=== PATIENT | female | born 1940 | race Caucasian/White ===

== ENCOUNTER 2020-07-04 08:15 | Outpatient (REF) | payer OTHER, SELFPAY ==
[2020-07-04 11:45] LABS: HCG Quantitative < 2 mIU/mL
[2020-07-04 12:03] LABS: Anion Gap 12 (12-20); Blood Urea Nitrogen 17 mg/dL (9-16); Calcium 10.1 mg/dL (8.4-10.2); Carbon Dioxide 28 mmol/L (22-29); Chloride 106 mmol/L (96-108); Cholesterol 209 mg/dL; Estimated Glomerular Filt Rate 54; Glucose Random 93 mg/dL (60-115); HDL Cholesterol 64 mg/dL; LDL Cholesterol Calculated 124 mg/dl; Potassium 4.9 mmol/l (3.3-5.1); Sodium 141 mmol/L (135-145); Triglycerides 107 mg/dL
== END 2020-07-04 08:16 | disposition home or self-care (01) ==
LOC: HO.HMGCLDS 08:15
PROVIDERS: PCP Internal Medicine; Visit Provider Internal Medicine
DX: N28.9 Disorder of kidney and ureter, unspecified (principal); T78.40XA Allergy, unspecified, initial encounter; M81.0 Age-related osteoporosis without current pathological fracture; I10 Essential (primary) hypertension
CPT/HCPCS: 36415; 80048; 80061; 84702; 85018

== ENCOUNTER 2020-11-05 09:26 | Outpatient (REF) | payer OTHER, SELFPAY ==
[2020-11-05 11:49] LABS: Anion Gap 14 (12-20); Blood Urea Nitrogen 18 mg/dL (9-16); Calcium 10.4 mg/dL (8.4-10.2); Carbon Dioxide 26 mmol/L (22-29); Chloride 106 mmol/L (96-108); Estimated Glomerular Filt Rate 52; Glucose Random 96 mg/dL (60-115); Sodium 141 mmol/L (135-145)
== END 2020-11-05 09:27 | disposition home or self-care (01) ==
LOC: HO.HMGCLDS 09:26
PROVIDERS: PCP Internal Medicine; Visit Provider Internal Medicine
DX: M81.0 Age-related osteoporosis without current pathological fracture (principal); I10 Essential (primary) hypertension; N28.9 Disorder of kidney and ureter, unspecified
CPT/HCPCS: 36415; 80048

== ENCOUNTER 2020-12-10 09:49 | Outpatient (REF) | payer OTHER, SELFPAY ==
--- NOTE | ~2020-12-10 | MM_ITS ---
EXAMINATION: MM SCREENING DIGITAL BREAST TOMOSYNTHESIS, BILATERAL CLINICAL INFORMATION: Screening. Asymptomatic. The lifetime risk of breast cancer based on the Tyrer-Cuzick Model is 3%. COMPARISON: Mammography: 04/05/2019, 02/24/2018, 12/01/2016 TECHNIQUE: Digital breast tomosynthesis is performed in both the craniocaudal and mediolateral oblique views along with computer-aided detection (CAD). Synthesized 2D images are generated from the tomosynthesis. FINDINGS: There are scattered areas of fibroglandular density (ACR BI-RADS breast composition Category b). There are no significant masses, abnormal calcifications, or other abnormalities. Parenchymal pattern is similar to prior studies. No developing density. No significant changes. MM/MM tomosynthesis screening BI IMPRESSION: No mammographic evidence of malignancy. ASSESSMENT: BI-RADS 1: Negative RECOMMENDATION: Routine annual mammography screening. This patient's information was entered into a reminder system with a target due date for their next mammogram.
== END 2020-12-10 09:50 | disposition home or self-care (01) ==
LOC: HO.MAMMO 09:49
PROVIDERS: PCP Internal Medicine; Visit Provider Internal Medicine
DX: Z12.31 Encounter for screening mammogram for malignant neoplasm of breast (principal)
CPT/HCPCS: 77063; 77067

== ENCOUNTER 2020-12-17 10:44 | Outpatient (REF) | payer OTHER, SELFPAY ==
[2020-12-17 13:50] LABS: MANUAL DIFF FLAG NO
[2020-12-17 13:52] LABS: Basophils Percent Auto 0.4 % (0-2); Eosinophils Absolute Auto 0.1 X10*3/uL (0.0-0.4); Eosinophils Percent Auto 1.4 % (0-4); Hematocrit 41.4 % (37-47); Hemoglobin 13.4 g/dl (12.0-16.0); Imm Gran Abs Auto 0.02 X10*3/uL (0.00-0.03); Imm Gran Pct Auto 0.4 % (0.0-0.4); Lymphocytes Absolute Auto 1.4 X10*3/uL (1.2-4.9); Mean Corpuscular HGB Conc 32.4 g/dl (31.0-35.0); Mean Corpuscular Hemoglobin 29.8 pg (27.0-33.0); Mean Platelet Volume 9.4 fL (9.4-12.3); Monocytes Absolute Auto 0.6 X10*3/uL (0.1-1.2); Monocytes Percent Auto 10.3 % (2-11); Neutrophils Absolute Auto 3.6 X10*3/uL (2.0-8.3); Neutrophils Percent Auto 62.5 % (45-73); Platelet Count 352 X10*3/uL (160-400); Red Cell Distribution Width 12.6 % (11.0-16.0); White Blood Count 5.7 X10*3/uL (4.8-10.8)
[2020-12-17 14:20] LABS: Alanine Aminotransferase 18 U/L (0-31); Albumin Level 4.2 g/dL (3.5-5.0); Alkaline Phosphatase 78 U/L (39-117); Aspartate Amino Transferase 18 U/L (5-31); Bilirubin Direct < 0.2 mg/dL (0.0-0.5); Bilirubin Total 0.5 mg/dL (0.0-1.0); Total Protein 6.8 g/dL (6.5-8.0)
== END 2020-12-17 10:45 | disposition home or self-care (01) ==
LOC: HO.HMGCLDS 10:44
PROVIDERS: PCP Internal Medicine; Visit Provider Internal Medicine
DX: R10.11 Right upper quadrant pain (principal)
CPT/HCPCS: 36415; 80076; 85025

== ENCOUNTER 2020-12-18 08:50 | Outpatient (REF) | payer OTHER, SELFPAY ==
--- NOTE | ~2020-12-18 | US_ITS ---
EXAMINATION: US ABDOMEN COMPLETE CLINICAL INFORMATION: Right upper quadrant pain. COMPARISON: None TECHNIQUE: Real-time imaging of the abdominal viscera. FINDINGS: PANCREAS: The head and body the pancreas are normal. The tail is not well visualized due to bowel gas. ABDOMINAL AORTA: There is evidence of atherosclerotic disease. The proximal, mid, and distal segments are normal in caliber. INFERIOR VENA CAVA: Visualized portions are normal. LIVER: Normal. The liver is normal in size. The liver contour is normal. Parenchymal echogenicity is normal. No focal hepatic lesion. There is no intrahepatic biliary duct dilatation seen. GALLBLADDER: Normal. The gallbladder is physiologically distended without evidence of stones, sludge, polyps, wall thickening or pericholecystic fluid. COMMON BILE DUCT: Normal in caliber measuring 0.6 cm in diameter. RIGHT KIDNEY: Normal. No hydronephrosis. No renal calculi or focal parenchymal lesions. The kidney measures 9.6 cm in maximum dimension. LEFT KIDNEY: There is mild left hydronephrosis versus extrarenal pelvis.. No renal calculi or focal parenchymal lesions. The kidney measures 9.4 cm in maximum dimension. SPLEEN: Normal. The spleen measures 8.2 cm in maximum dimension. FREE FLUID: None. US/US abdomen complete IMPRESSION: Mild left hydronephrosis versus extrarenal pelvis. Limited visualization of the pancreas. Atherosclerotic disease of the aorta. No gallstone seen.
== END 2020-12-18 08:51 | disposition home or self-care (01) ==
LOC: HO.US 08:50
PROVIDERS: PCP Internal Medicine; Visit Provider Internal Medicine
DX: R10.11 Right upper quadrant pain (principal)
CPT/HCPCS: 76700

== ENCOUNTER → 2021-01-07 11:02 | Outpatient (BNVA) | payer OTHER, SELFPAY | PROVIDERS: PCP Internal Medicine; Visit Provider Surgery Vascular Surgery ==

== ENCOUNTER → 2021-02-06 11:57 | Outpatient (BNVA) | payer OTHER, SELFPAY | PROVIDERS: PCP Internal Medicine; Referring Provider Internal Medicine; Visit Provider Physician Assistant ==

== ENCOUNTER 2021-02-20 09:10 | Outpatient (REF) | payer OTHER, SELFPAY ==
--- NOTE | ~2021-02-20 | FL_ITS ---
EXAMINATION: FL BARIUM SWALLOW CLINICAL INFORMATION: Dysphagia. COMPARISON: None TECHNIQUE: Barium swallow examination is performed using fluoroscopic evaluation in addition to multiple fluoroscopic spot views. The patient is imaged both upright and prone and using both thick and thin sulfate along with effervescent granules. Fluoroscopy time: 2.8 minutes DAP: 26.532 Gycm2 Images: 84 FINDINGS: Following oral administration of thick barium and barium-coated turkey there is normal propagation of bolus from the oral cavity through the pharynx, esophagus into stomach without any evidence of obstruction, narrowing or stricture. On placing patient supine and prone lying there is a small hiatal hernia with moderate gastroesophageal reflux into the upper esophagus. The mucosal pattern and peristalsis of esophagus is normal. FL/FL barium swallow IMPRESSION: Moderate size hiatal hernia with moderate gastroesophageal reflux into the upper esophagus.
== END 2021-02-20 09:11 | disposition home or self-care (01) ==
LOC: HO.XRAY 09:10
PROVIDERS: Visit Provider Physician Assistant
DX: R13.10 Dysphagia, unspecified (principal)
CPT/HCPCS: 74220

== ENCOUNTER 2021-03-25 07:46 | Outpatient (REF) | payer OTHER, SELFPAY | END 2021-03-25 07:47 | disposition home or self-care (01) | LOC: HO.LNP 07:46 | PROVIDERS: PCP Internal Medicine; Visit Provider Physician Assistant | DX: Z13.89 Encounter for screening for other disorder (principal) ==

== ENCOUNTER 2021-03-26 10:05 | Outpatient (REF) | payer OTHER, SELFPAY | END 2021-03-26 10:06 | disposition home or self-care (01) | LOC: HO.LNP 10:05 | PROVIDERS: Visit Provider Physician Assistant | DX: A04.8 Other specified bacterial intestinal infections (principal) | CPT/HCPCS: 87338 ==

== ENCOUNTER → 2021-04-29 09:12 | Outpatient (BNVA) | payer OTHER, SELFPAY | PROVIDERS: PCP Internal Medicine; Referring Provider Internal Medicine; Visit Provider Physician Assistant ==

== ENCOUNTER 2021-09-09 09:58 | Outpatient (REF) | payer OTHER, SELFPAY ==
[2021-09-09 12:28] LABS: Alanine Aminotransferase 19 U/L (0-31); Albumin Level 3.9 g/dL (3.5-5.0); Alkaline Phosphatase 73 U/L (39-117); Anion Gap 9 (12-20); Aspartate Amino Transferase 21 U/L (5-31); Bilirubin Total 0.7 mg/dL (0.0-1.0); Blood Urea Nitrogen 13 mg/dL (9-16); Calcium 10.1 mg/dL (8.4-10.2); Carbon Dioxide 28 mmol/L (22-29); Chloride 105 mmol/L (96-108); Estimated Glomerular Filt Rate 53; Glucose Random 125 mg/dL (60-115); Potassium 4.4 mmol/L (3.3-5.1); Sodium 138 mmol/L (135-145); Total Protein 6.7 g/dL (6.5-8.0)
== END 2021-09-09 09:59 | disposition home or self-care (01) ==
LOC: HO.HMGCLDS 09:58
PROVIDERS: PCP Internal Medicine; Visit Provider Internal Medicine
DX: I10 Essential (primary) hypertension (principal)
CPT/HCPCS: 36415; 80053

== ENCOUNTER 2021-12-11 10:17 | Outpatient (REF) | payer OTHER, SELFPAY ==
--- NOTE | ~2021-12-11 | MM_ITS ---
EXAMINATION: MM SCREENING DIGITAL BREAST TOMOSYNTHESIS, BILATERAL CLINICAL INFORMATION: Screening. Asymptomatic. The lifetime risk of breast cancer based on the Tyrer-Cuzick Model is 2.4%. COMPARISON: Mammography: December 10, 2020 and studies dating back to April 03, 2014 TECHNIQUE: Digital breast tomosynthesis is performed in both the craniocaudal and mediolateral oblique views along with computer-aided detection (CAD). Synthesized 2D images are generated from the tomosynthesis. FINDINGS: There are scattered areas of fibroglandular density (ACR BI-RADS breast composition Category b). There are no significant masses, abnormal calcifications, or other abnormalities. MM/MM tomosynthesis screening BI IMPRESSION: There are no significant changes from prior study. ASSESSMENT: BI-RADS 1: Negative RECOMMENDATION: Routine annual mammography screening. This patient's information was entered into a reminder system with a target due date for their next mammogram.
== END 2021-12-11 10:18 | disposition home or self-care (01) ==
LOC: HO.MAMMO 10:17
PROVIDERS: Visit Provider Internal Medicine
DX: Z12.31 Encounter for screening mammogram for malignant neoplasm of breast (principal)
CPT/HCPCS: 77063; 77067

== ENCOUNTER 2022-02-03 13:18 | Outpatient (REF) | payer OTHER, SELFPAY ==
[2022-02-03 17:08] LABS: Alanine Aminotransferase 18 U/L (0-31); Albumin Level 4.2 g/dL (3.5-5.0); Alkaline Phosphatase 72 U/L (39-117); Anion Gap 12 (12-20); Aspartate Amino Transferase 23 U/L (5-31); Bilirubin Total 0.4 mg/dL (0.0-1.0); Blood Urea Nitrogen 13 mg/dL (9-16); Calcium 10.3 mg/dL (8.4-10.2); Carbon Dioxide 26 mmol/L (22-29); Chloride 106 mmol/L (96-108); Estimated Glomerular Filt Rate 54; Glucose Random 93 mg/dL (60-115); Potassium 4.5 mmol/L (3.3-5.1); Sodium 139 mmol/L (135-145); Total Protein 7.1 g/dL (6.5-8.0)
== END 2022-02-03 13:19 | disposition home or self-care (01) ==
LOC: HO.HMGCLDS 13:18
PROVIDERS: PCP Internal Medicine; Visit Provider Internal Medicine
DX: I10 Essential (primary) hypertension (principal)
CPT/HCPCS: 36415; 80053

== ENCOUNTER 2022-08-12 10:29 | Outpatient (REF) | payer OTHER, SELFPAY ==
[2022-08-12 13:55] LABS: MANUAL DIFF FLAG NO
[2022-08-12 14:05] LABS: Basophils Percent Auto 0.6 % (0-2); Eosinophils Absolute Auto 0.1 X10*3/uL (0.0-0.4); Eosinophils Percent Auto 2.7 % (0-4); Hematocrit 42.5 % (37.0-47.0); Hemoglobin 13.7 g/dl (12.0-16.0); Imm Gran Abs Auto 0.02 X10*3/uL (0.00-0.03); Imm Gran Pct Auto 0.4 % (0.0-0.4); Lymphocytes Absolute Auto 1.4 X10*3/uL (1.2-4.9); Lymphocytes Percent Auto 29.4 % (20-40); Mean Corpuscular HGB Conc 32.2 g/dl (31.0-35.0); Mean Corpuscular Hemoglobin 29.8 pg (27.0-33.0); Mean Corpuscular Volume 92.6 fL (80.0-98.0); Mean Platelet Volume 10.1 fL (9.4-12.3); Monocytes Absolute Auto 0.5 X10*3/uL (0.1-1.2); Monocytes Percent Auto 10.7 % (2-11); Neutrophils Absolute Auto 2.7 x10*3/uL (2.0-8.3); Neutrophils Percent Auto 56.2 % (45-73); Platelet Count 298 X10*3/uL (160-400); Red Blood Count 4.59 X10*6/uL (4.20-5.50); Red Cell Distribution Width 12.1 % (11.0-16.0); White Blood Count 4.8 X10*3/uL (4.8-10.8)
[2022-08-12 14:49] LABS: Alanine Aminotransferase 26 U/L (0-31); Albumin Level 4.2 g/dL (3.5-5.0); Alkaline Phosphatase 77 U/L (39-117); Anion Gap 11 (12-20); Aspartate Amino Transferase 28 U/L (5-31); Bilirubin Total 0.5 mg/dL (0.0-1.0); Blood Urea Nitrogen 17 mg/dL (9-16); Calcium 10.8 mg/dL (8.4-10.2); Carbon Dioxide 27 mmol/L (22-29); Chloride 106 mmol/L (96-108); Estimated Glomerular Filt Rate > 60; Glucose Random 99 mg/dL (60-115); Potassium 4.4 mmol/L (3.3-5.1); Sodium 140 mmol/L (135-145); Total Protein 7.3 g/dL (6.5-8.0)
[2022-08-12 14:51] LABS: TSH reflex Free T4 2.83 uIU/mL (0.32-4.0)
[2022-08-14 00:58] LABS: LDL Cholesterol Direct 120 mg/dL (<100)
== END 2022-08-12 10:30 | disposition home or self-care (01) ==
LOC: HO.HMGCLDS 10:29
PROVIDERS: PCP Internal Medicine; Visit Provider Internal Medicine
DX: M81.0 Age-related osteoporosis without current pathological fracture (principal); N28.9 Disorder of kidney and ureter, unspecified; R10.13 Epigastric pain; I10 Essential (primary) hypertension
CPT/HCPCS: 36415; 80053; 83721; 84443; 85025

== ENCOUNTER 2023-01-12 09:22 | Outpatient (REF) | payer OTHER, SELFPAY ==
--- NOTE | ~2023-01-12 | MM_ITS ---
EXAMINATION: MM SCREENING DIGITAL BREAST TOMOSYNTHESIS, BILATERAL CLINICAL INFORMATION: Screening. Asymptomatic. The lifetime risk of breast cancer based on the Tyrer-Cuzick Model is 2%. COMPARISON: Mammography: 12/11/2021, 12/10/2020, 04/05/2019 TECHNIQUE: Digital breast tomosynthesis is performed in both the craniocaudal and mediolateral oblique views along with computer-aided detection (CAD). Synthesized 2D images are generated from the tomosynthesis. FINDINGS: There are scattered areas of fibroglandular density (ACR BI-RADS breast composition Category b). There are no significant masses, abnormal calcifications, or other abnormalities. Parenchymal pattern is similar to prior studies. There is no developing density or architectural abnormality. The axilla and skin contours are unremarkable. No significant changes. MM/MM tomosynthesis screening BI IMPRESSION: No mammographic evidence of malignancy. ASSESSMENT: BI-RADS 1: Negative RECOMMENDATION: Routine annual mammography screening. This patient's information was entered into a reminder system with a target due date for their next mammogram.
== END 2023-01-12 09:23 | disposition home or self-care (01) ==
LOC: HO.MAMMO 09:22
PROVIDERS: Visit Provider Internal Medicine
DX: Z12.31 Encounter for screening mammogram for malignant neoplasm of breast (principal)
CPT/HCPCS: 77063; 77067

== ENCOUNTER 2023-02-11 09:32 | Outpatient (REF) | payer OTHER, SELFPAY ==
[2023-02-11 12:50] LABS: Alanine Aminotransferase 14 U/L (0-31); Alkaline Phosphatase 73 U/L (39-117); Anion Gap 14 (12-20); Aspartate Amino Transferase 21 U/L (5-31); Bilirubin Total 0.6 mg/dL (0.0-1.0); Blood Urea Nitrogen 13 mg/dL (9-16); Calcium 11.1 mg/dL (8.4-10.2); Carbon Dioxide 25 mmol/L (22-29); Chloride 107 mmol/L (96-108); Estimated Glomerular Filt Rate 55; Glucose Random 114 mg/dL (60-115); Potassium 4.4 mmol/L (3.3-5.1); Sodium 142 mmol/L (135-145); Total Protein 6.9 g/dL (6.5-8.0)
[2023-02-13 18:38] LABS: LDL Cholesterol Direct 122 mg/dL (<100)
== END 2023-02-11 09:33 | disposition home or self-care (01) ==
LOC: HO.HMGCLDS 09:32
PROVIDERS: PCP Internal Medicine; Visit Provider Internal Medicine
DX: I10 Essential (primary) hypertension (principal); N28.9 Disorder of kidney and ureter, unspecified
CPT/HCPCS: 36415; 80053; 83721

== ENCOUNTER 2023-03-17 08:45 | Outpatient (AMB) | payer OTHER, SELFPAY ==
[2023-03-17 08:47] VITALS: BP 152/86; PULSE 92; O2SAT 97; BMI 25.0
--- NOTE | 2023-03-17 08:47 | MHC.PC.OV ---
Vital Signs 03/17/23 08:47 Height 5 ft 4 in Weight 145 lb 8 oz BMI 25.0 BP 152/86 H Blood Pressure Location Lt brachial Position Sitting Pulse 92 Pulse Source Pulse Oximeter Pulse Oximetry (%) 97 Oxygen Delivery Method Room Air Intake Visit Reasons: 6m follow up htn Allergies peanut butter / red wine Allergy (Unknown, Uncoded 04/29/22 12:21) unknown atnolol Adverse Reaction (Mild, Uncoded 08/12/22 10:34) tired Medication List - Last Reconciled 03/17/23 by Nicko Macias MD lisinopril 40 mg PO DAILY 90 days on-nlf-neeem acid-lutein 400-250 mcg (Centrum Silver) 1 tab PO DAILY Tobacco use date assessed: 03/17/23 Fall risk assessment: No Falls in past year Last assessed Fall Risk: 03/17/23 Dental Screening Dental Screen Date: 03/17/23 Did you have a dental visit in the last 12 months?: Yes Did you have a dental problem in the last 6 months where you did not have access to dental care?: No Was dental information given to patient?: No HPI 6m follow up htn HPI Details Patient is 82-year-old female came in today for her regular follow-up Blood pressure is elevated today at 152/86, patient is taking lisinopril 40 mg Patient says that her check-in process was stressful today and that is why her blood pressure is elevated she does not want to add another medication She will return on Wednesday for nursing visit to check blood pressure. Labs done recently reviewed with the patient She continued to have elevated calcium, I have ordered parathyroid hormone test Her LDL is 122 Kidney functions are stable Acid reflux is stable. Patient continued to be anxious however not taking any medication [facility] Medical History Age related osteoporosis Allergies Hypertension, essential Nephropathy Surgical History History of hysterectomy Family History Father Parkinson disease Unknown family medical history Mother Dementia Sister Myeloma Social History Household Members Other:: Alone- single, no child Housing: Apartment Alcohol intake: current Alcohol intake frequency: holidays/special occasions only Patient Tobacco Use Status: Never used Tobacco e-Cigarette/Vaping Use: Never Used Current occupational status: retired Cognitive needs: Yes Hearing needs: No Vision needs: Yes Questionnaire Thrive Questionnaire Date Thrive assessed: 03/07/21 AUDIT C Alcohol Use Questionnaire (AUDIT-C) 1. How often do you have a drink containing alcohol?: Never 3. How often do you have six or more drinks on one occasion?: Never Total Score: 0 Score Reviewed/Action Taken: Yes Review of Systems Const Denies chills and Denies fever(s) ENT Denies epistaxis and Denies nasal discharge Card Denies chest pain Resp Denies chest congestion, Denies cough and Denies hemoptysis GI Denies diarrhea and Denies nausea Skin/Breast Denies rash Neuro Reports no additional complaints Psych Reports no additional complaints Endo Reports no additional complaints Physical exam (Primary Care) Vital Signs: Last Vital Signs Pulse 92 03/17/23 08:47 BP 152/86 H 03/17/23 08:47 Pulse Ox 97 03/17/23 08:47 Oxygen Delivery Method Room Air 03/17/23 08:47 BMI result Body Mass Index 25.0 Tobacco/Smoking Status: Tobacco use Status Tobacco use date assessed 03/17/23 03/17/23 08:54 Patient Tobacco Use Status Never used Tobacco 03/17/23 08:54 e-Cigarette/Vaping Use Never Used 03/17/23 08:54 Thrive Assessment: Date of Thrive Assessment Date Thrive assessed 03/07/21 03/17/23 08:54 Const General: cooperative, comfortable and no acute distress Orientation/consciousness: patient oriented x3 HENAR Head: Yes normocephalic Eyes General: appearance normal, both eyes and all related structures Neck Neck: Yes supple Resp Effort & Inspection: normal respiratory effort, no cough and no stridor Cardio Rhythm: regular rhythm Heart sounds: S1 normal heart sound present and S2 normal heart sound present Skin General skin exam: turgor normal Neuro General: patient oriented x3, tone normal and moves all extremities Extrem Right lower extremity: no edema Left lower extremity: no edema Assessment and Plan Assessment & Plan (1) Serum calcium elevated: Code(s): E83.52 - Hypercalcemia (2) Nephropathy: Code(s): N28.9 - Disorder of kidney and ureter, unspecified (3) Anxiety, generalized: Code(s): F41.1 - Generalized anxiety disorder (4) Hypertension, essential: Code(s): I10 - Essential (primary) hypertension (5) Age related osteoporosis: Code(s): M81.0 - Age-related osteoporosis without current pathological fracture (6) Acid reflux: Code(s): K21.9 - Gastro-esophageal reflux disease without esophagitis Plan Patient is 82-year-old female came in today for her regular follow-up Blood pressure is elevated today at 152/86, patient is taking lisinopril 40 mg Patient says that her check-in process was stressful today and that is why her blood pressure is elevated she does not want to add another medication She will return on Wednesday for nursing visit to check blood pressure. Labs done recently reviewed with the patient She continued to have elevated calcium, I have ordered parathyroid hormone test Her LDL is 122 Kidney functions are stable Acid reflux is stable. Patient continued to be anxious however not taking any medication Orders: Orders Parathyroid Hormone Related Pr Today E83.52 - Hypercalcemia Vitamin D 25-OH (D2 and D3) Today E83.52 - Hypercalcemia Coding Level of Care Code Est Pt Level 3 (06569) Diagnoses Serum calcium elevated E83.52 Nephropathy N28.9 Anxiety, generalized F41.1 Hypertension, essential I10 Age related osteoporosis M81.0 Acid reflux K21.9
== END 2023-03-17 09:07 | disposition home or self-care (01) ==
PROVIDERS: Visit Provider Internal Medicine
DX: I10 Essential (primary) hypertension (principal); E83.52 Hypercalcemia; K21.9 Gastro-esophageal reflux disease without esophagitis; N28.9 Disorder of kidney and ureter, unspecified; F41.1 Generalized anxiety disorder; M81.0 Age-related osteoporosis without current pathological fracture
CPT/HCPCS: 99213

== ENCOUNTER 2023-03-17 09:10 | Outpatient (REF) | payer OTHER, SELFPAY ==
[2023-03-21 15:33] LABS: Vitamin D 25-OH, D2 <4 ng/mL; Vitamin D 25-OH, D3 45 ng/mL; Vitamin D 25-OH, Total 45 ng/mL (30-100)
[2023-03-24 00:04] LABS: Parathyroid Hormone Related Pr 14 pg/mL (11-20)
== END 2023-03-17 09:11 | disposition home or self-care (01) ==
LOC: HO.HMGCLDS 09:10
PROVIDERS: PCP Internal Medicine; Visit Provider Internal Medicine
DX: E83.52 Hypercalcemia (principal)
CPT/HCPCS: 36415; 82306; 83519

== ENCOUNTER 2023-06-16 10:01 | Outpatient (AMB) | payer OTHER, SELFPAY ==
[2023-06-16 10:04] VITALS: BP 140/80; PULSE 80; O2SAT 98; BMI 24.5
--- NOTE | 2023-06-16 10:04 | A.OFFPC_ITS ---
Vital Signs 06/16/23 10:04 Height 5 ft 4 in Weight 143 lb BMI 24.5 BP 140/80 H Blood Pressure Location Lt brachial Position Sitting Pulse 80 Pulse Source Pulse Oximeter Pulse Oximetry (%) 98 Oxygen Delivery Method Room Air Intake Visit Reasons: 3m follow up htn Allergies peanut butter / red wine Allergy (Unknown, Uncoded 06/16/23 10:10) unknown atnolol Adverse Reaction (Mild, Uncoded 06/16/23 10:10) tired Medication List - Last Reconciled 06/16/23 by Nicko Macias MD lisinopril 40 mg PO DAILY 90 days bu-xaz-frwvs acid-lutein 400-250 mcg (Centrum Silver) 1 tab PO DAILY Tobacco use date assessed: 06/16/23 Last assessed Fall Risk: 06/16/23 Dental Screening Dental Screen Date: 06/16/23 Did you have a dental visit in the last 12 months?: Yes Did you have a dental problem in the last 6 months where you did not have access to dental care?: Yes Was dental information given to patient?: Patient has dentist HPI 3m follow up htn HPI Details Patient is 82-year-old female came in today for her regular follow-up Blood pressure is running around 130 systolic at home, it is usually elevated when she comes to the office Patient is on lisinopril 40 mg and is doing well. Patient have constantly elevated calcium with normal parathyroid hormone level She also have osteoporosis, and is trying to do weight-bearing exercises. And eat calcium rich foods. She does have nephropathy her GFR was 55 in January We will be repeating labs again today Acid reflux is stable. Patient continued to be anxious however not taking any medication She wears hearing aid and having difficulty hearing from right ear On examination , it is impacted with cerumen She tells me that she has appointment with ENT end of this month. She will return in September for follow-up [facility] Medical History Nephropathy Allergies Age related osteoporosis Hypertension, essential Surgical History History of hysterectomy Family History Father Parkinson disease Unknown family medical history Mother Dementia Sister Myeloma Social History Household Members Other:: Alone- single, no child Housing: Apartment Alcohol intake: current Alcohol intake frequency: holidays/special occasions only Patient Tobacco Use Status: Never used Tobacco e-Cigarette/Vaping Use: Never Used Current occupational status: retired Cognitive needs: Yes Hearing needs: Yes Vision needs: Yes Questionnaire PHQ-9 Over the last 2 weeks, how often have you been bothered by any of the following problems? 1. Little interest or pleasure in doing things: not at all 2. Feeling down, depressed, or hopeless: not at all 3. Trouble falling or staying asleep, or sleeping too much: not at all 4. Feeling tired or having little energy: not at all 5. Poor appetite or overeating: not at all 6. Feeling bad about yourself - or that you are a failure or have let yourself or your family down: not at all 7. Trouble concentrating on things, such as reading the newspaper or watching television: not at all 8. Moving or speaking so slowly that other people could have noticed. Or the opposite - being so fidgety or restless that you have been moving around a lot more than usual: not at all 9. Thoughts that you would be better off or of hurting yourself in some way: not at all Total score: 0 Depression Screening Interpretation: Negative Depression Screening Done: Yes 83269 - PHQ-9 Billing: Yes Source: Developed by Drs. Phan Munroe, Avis Hitchcock, Alexi Mina and colleagues, with an educational serjio from [employer]. Thrive Questionnaire Date Thrive assessed: 06/16/23 I am a: Patient What is your living situation today?: I have a steady place to live Within the past 12 months, did the food you bought not last and you didn't have the money to get more?: Never true Within the past 12 months, did you worry whether your food would run out before you got money to buy more?: Never true Do you have trouble paying for medicines?: No Do you have trouble getting transportation to medical appointments?: No Do you have trouble paying your heating and electricity bill?: No Do you have trouble taking care of your child, family member or friend?: No Do you have trouble with day-to-day activities such as bathing, preparing meals, shopping, managing finances, etc.?: No Are you currently unemployed and looking for a job?: No Are you interested in more education?: No Please select the resources that you would like help with: None Currently or been in a relationship where the following occur: no concerns reported AUDIT C Alcohol Use Questionnaire (AUDIT-C) 1. How often do you have a drink containing alcohol?: Never Total Score: 0 ADRIAN-7 AMB Questionnaire ADRIAN-7 Date ADRIAN - 7 assessed: 06/16/23 Feeling nervous, anxious, or on edge: 0 = Not at all Not being able to stop or control worryin = Not at all Worrying too much about different things: 0 = Not at all Trouble relaxin = Not at all Being so restless that it is hard to sit still: 0 = Not at all Becoming easily annoyed or irritable: 0 = Not at all Feeling afraid as if something awful might happen: 0 = Not at all Total ADRIAN-7 score (0-4 normal; 5-9 mild; 10-14 moderate; 15-21 severe): 0 Source: Developed by Drs. Phan Munroe, Avis Hitchcock, Alexi Mina and colleagues, with an educational serjio from [employer]. ADRIAN-7 Assessment Billing ADRIAN-7 Assessment Tool: ADRIAN-7 Assessment 73086 Review of Systems Const Denies chills and Denies fever(s) ENT Denies epistaxis and Denies nasal discharge Card Denies chest pain Resp Denies chest congestion, Denies cough and Denies hemoptysis GI Denies diarrhea and Denies nausea Skin/Breast Denies rash Neuro Reports no additional complaints Psych Reports no additional complaints Endo Reports no additional complaints Physical exam (Primary Care) Vital Signs: Last Vital Signs Pulse 80 06/16/23 10:04 BP 140/80 H 06/16/23 10:04 Pulse Ox 98 06/16/23 10:04 Oxygen Delivery Method Room Air 06/16/23 10:04 BMI result Body Mass Index 24.5 Tobacco/Smoking Status: Tobacco use Status Tobacco use date assessed 06/16/23 06/16/23 10:13 Patient Tobacco Use Status Never used Tobacco 06/16/23 10:05 e-Cigarette/Vaping Use Never Used 06/16/23 10:05 PHQ-9: PHQ-9 Score PHQ-9: Total score 0 06/16/23 10:13 Depression Screening Interpretation: Negative Thrive Assessment: Date of Thrive Assessment Date Thrive assessed 06/16/23 06/16/23 10:13 Currently or been in a relationship where the following occur: no concerns reported Const General: cooperative, comfortable and no acute distress Orientation/consciousness: patient oriented x3 HENMT Head: Yes normocephalic Eyes General: appearance normal, both eyes and all related structures Neck Neck: Yes supple Resp Effort & Inspection: normal respiratory effort, no cough and no stridor Cardio Rhythm: regular rhythm Heart sounds: S1 normal heart sound present and S2 normal heart sound present Skin General skin exam: turgor normal Neuro General: patient oriented x3, tone normal and moves all extremities Extrem Right lower extremity: no edema Left lower extremity: no edema Assessment and Plan Assessment & Plan (1) Hypertension, essential: Code(s): I10 - Essential (primary) hypertension (2) Age related osteoporosis: Code(s): M81.0 - Age-related osteoporosis without current pathological fracture Qualifiers: Presence of current pathological fracture: without current pathological fracture Qualified Code(s): M81.0 - Age-related osteoporosis without current pathological fracture (3) Allergies: Code(s): T78.40XA - Allergy, unspecified, initial encounter (4) Nephropathy: Code(s): N28.9 - Disorder of kidney and ureter, unspecified (5) Anxiety, generalized: Code(s): F41.1 - Generalized anxiety disorder (6) Serum calcium elevated: Code(s): E83.52 - Hypercalcemia Plan Patient is 82-year-old female came in today for her regular follow-up Blood pressure is running around 130 systolic at home, it is usually elevated when she comes to the office Patient is on lisinopril 40 mg and is doing well. Patient have constantly elevated calcium with normal parathyroid hormone level She also have osteoporosis, and is trying to do weight-bearing exercises. And eat calcium rich foods. She does have nephropathy her GFR was 55 in January We will be repeating labs again today Acid reflux is stable. Patient continued to be anxious however not taking any medication She wears hearing aid and having difficulty hearing from right ear On examination , it is impacted with cerumen She tells me that she has appointment with ENT end of this month. She will return in September for follow-up Orders: Orders Comprehensive Met. Panel Today F41.1 - Generalized anxiety disorder, I10 - Essential (primary) hypertension, M81.0 - Age-related osteoporosis without current pathological fracture, N28.9 - Disorder of kidney and ureter, unspecified, T78.40XA - Allergy, unspecified, initial encounter Complete Blood Count Auto Diff Today F41.1 - Generalized anxiety disorder, I10 - Essential (primary) hypertension, M81.0 - Age-related osteoporosis without current pathological fracture, N28.9 - Disorder of kidney and ureter, unspecified, T78.40XA - Allergy, unspecified, initial encounter LDL Cholesterol Direct Today F41.1 - Generalized anxiety disorder, I10 - Essential (primary) hypertension, M81.0 - Age-related osteoporosis without current pathological fracture, N28.9 - Disorder of kidney and ureter, unspecified, T78.40XA - Allergy, unspecified, initial encounter Coding Level of Care Code Est Pt Level 4 (68894) Diagnoses Hypertension, essential I10 Age-related osteoporosis without current pathological fracture M81.0 Presence of current pathological fracture: without current pathological fracture Allergies T78.40XA Nephropathy N28.9 Anxiety, generalized F41.1 Serum calcium elevated E83.52 Additional Codes ADRIAN-7 Assessment Billing - ADRIAN-7 Assessment Tool: ADRIAN-7 Assessment 71504 ([id number])
== END 2023-06-16 10:31 | disposition home or self-care (01) ==
PROVIDERS: PCP Internal Medicine; Visit Provider Internal Medicine
DX: I10 Essential (primary) hypertension (principal); M81.0 Age-related osteoporosis without current pathological fracture; T78.40XA Allergy, unspecified, initial encounter; N28.9 Disorder of kidney and ureter, unspecified; F41.1 Generalized anxiety disorder; E83.52 Hypercalcemia
CPT/HCPCS: 99214

== ENCOUNTER 2023-06-16 10:33 | Outpatient (REF) | payer OTHER, SELFPAY ==
[2023-06-16 13:23] LABS: MANUAL DIFF FLAG NO
[2023-06-16 13:38] LABS: Basophils Percent Auto 0.5 % (0-2); Eosinophils Absolute Auto 0.2 X10*3/uL (0.0-0.4); Eosinophils Percent Auto 2.7 % (0-4); Hematocrit 39.5 % (37.0-47.0); Hemoglobin 12.7 g/dl (12.0-16.0); Imm Gran Abs Auto 0.02 X10*3/uL (0.00-0.03); Imm Gran Pct Auto 0.3 % (0.0-0.4); Lymphocytes Absolute Auto 1.4 X10*3/uL (1.2-4.9); Mean Corpuscular HGB Conc 32.2 g/dl (31.0-35.0); Mean Corpuscular Hemoglobin 30.2 pg (27.0-33.0); Mean Corpuscular Volume 93.8 fL (80.0-98.0); Mean Platelet Volume 9.4 fL (9.4-12.3); Monocytes Absolute Auto 0.6 X10*3/uL (0.1-1.2); Monocytes Percent Auto 10.2 % (2-11); Neutrophils Absolute Auto 3.7 x10*3/uL (2.0-8.3); Neutrophils Percent Auto 62.3 % (45-73); Platelet Count 392 X10*3/uL (160-400); Red Blood Count 4.21 X10*6/uL (4.20-5.50); Red Cell Distribution Width 12.4 % (11.0-16.0)
[2023-06-16 14:12] LABS: Alanine Aminotransferase 20 U/L (0-31); Albumin Level 4.3 g/dL (3.5-5.0); Alkaline Phosphatase 77 U/L (39-117); Anion Gap 10 (12-20); Aspartate Amino Transferase 26 U/L (5-31); Bilirubin Total 0.4 mg/dL (0.0-1.0); Blood Urea Nitrogen 14 mg/dL (9-16); Calcium 11.3 mg/dL (8.4-10.2); Carbon Dioxide 29 mmol/L (22-29); Chloride 107 mmol/L (96-108); Estimated Glomerular Filt Rate 57; Glucose Random 98 mg/dL (60-115); Potassium 5.4 mmol/L (3.3-5.1); Sodium 141 mmol/L (135-145); Total Protein 7.4 g/dL (6.5-8.0)
[2023-06-18 08:28] LABS: LDL Cholesterol Direct 118 mg/dL (<100)
== END 2023-06-16 10:34 | disposition home or self-care (01) ==
LOC: HO.HMGCLDS 10:33
PROVIDERS: PCP Internal Medicine; Visit Provider Internal Medicine
DX: I10 Essential (primary) hypertension (principal); M81.0 Age-related osteoporosis without current pathological fracture; T78.40XA Allergy, unspecified, initial encounter; N28.9 Disorder of kidney and ureter, unspecified; F41.1 Generalized anxiety disorder
CPT/HCPCS: 36415; 80053; 83721; 85025

== ENCOUNTER 2023-06-21 11:05 | Outpatient (REF) | payer OTHER, SELFPAY ==
[2023-06-21 14:20] LABS: Anion Gap 9 (12-20); Carbon Dioxide 30 mmol/L (22-29); Chloride 106 mmol/L (96-108); Potassium 4.5 mmol/L (3.3-5.1); Sodium 140 mmol/L (135-145)
== END 2023-06-21 11:06 | disposition home or self-care (01) ==
LOC: HO.HMGCLDS 11:05
PROVIDERS: PCP Internal Medicine; Visit Provider Internal Medicine
DX: E87.5 Hyperkalemia (principal)
CPT/HCPCS: 36415; 80051

== ENCOUNTER 2023-10-04 12:17 | Outpatient (AMB) | payer OTHER, SELFPAY ==
[2023-10-04 12:33] VITALS: BP 150/70; PULSE 38; TEMP 36.9; O2SAT 96; BMI 24.7
--- NOTE | 2023-10-04 12:33 | AM.OFFWIN_ITS ---
Intake Vital Signs 10/04/23 12:33 Height 5 ft 4 in Weight 144 lb BMI 24.7 BP 150/70 H Blood Pressure Location Lt brachial Position Sitting Pulse 38 L Pulse Source Pulse Oximeter Temp 98.4 F Temp Source Temporal Artery Scan Pulse Oximetry (%) 96 Oxygen Delivery Method Room Air Intake Visit Reasons: EP SOB, vomiting, not feeling well (lobby) Intake Note: pt is here today for SOB vomiting started wednesday Patient Tobacco Use Status: Never used Tobacco Allergies peanut butter / red wine Allergy (Unknown, Uncoded 03/13/24 11:04) unknown atnolol Adverse Reaction (Mild, Uncoded 03/13/24 11:04) tired Do you need a note to return to daycare/school/sports/work: No HPI HPI Comments History of Present Illness Details 83-year-old female presents today compla ining of increasing shortness of breath and 1 episode of vomiting this morning. States she has not feeling well. Of note upon registration her pulse rate was 38 quite bradycardic. [facility] Medical History Nephropathy Allergies Age related osteoporosis Hypertension, essential Surgical History History of hysterectomy Family History Father Parkinson disease Unknown family medical history Mother Dementia Sister Myeloma Social History Household Members Other:: Alone- single, no child Housing: Apartment Alcohol intake: current Alcohol intake frequency: holidays/special occasions only Patient Tobacco Use Status: Never used Tobacco e-Cigarette/Vaping Use: Never Used service: No Current occupational status: retired Cognitive needs: Yes Hearing needs: Yes Vision needs: Yes Review of Systems Const Reports fatigue Card Reports dyspnea and Reports dyspnea on exertion Resp Reports dyspnea and Reports dyspnea on exertion GI Reports vomiting (One episode this morning) Endo Reports fatigue Physical Exam Vital Signs: Last Vital Signs Temp 98.4 F 10/04/23 12:33 Pulse 38 L 10/04/23 12:33 BP 150/70 H 10/04/23 12:33 Pulse Ox 96 10/04/23 12:33 Oxygen Delivery Method Room Air 10/04/23 12:33 BMI result Body Mass Index 24.7 Resp Effort & Inspection: normal respiratory effort Auscultation: clear to auscultation bilaterally Cardio Rate: bradycardic Results Reviewed Results Reviewed: EKG done today shows complete heart block Assessment & Plan Assessment & Plan (1) Dehydration: Code(s): E86.0 - Dehydration Plan The patient will go by ambulance to the emergency department. She is called her brother to follow up with her care reviewed this patient with Dr. Arzate Coding Level of Care Code Est Pt Level 3 (31128) Diagnoses Dehydration E86.0
== END 2023-10-04 13:29 | disposition home or self-care (01) ==
PROVIDERS: PCP Internal Medicine; Visit Provider Physician Assistant Medical
DX: E86.0 Dehydration (principal)
CPT/HCPCS: 99213

== ENCOUNTER 2023-10-13 09:43 | Outpatient (AMB) | payer OTHER, SELFPAY ==
[2023-10-13 09:45] VITALS: BP 130/80; PULSE 76; O2SAT 98; BMI 24.5
--- NOTE | 2023-10-13 09:45 | MHC.PC.OV ---
Vital Signs 10/13/23 09:45 Height 5 ft 4 in Weight 143 lb BMI 24.5 BP 130/80 Blood Pressure Location Rt brachial Pulse 76 Pulse Source Pulse Oximeter Pulse Oximetry (%) 98 Oxygen Delivery Method Room Air Intake Visit Reasons: follow up htn Allergies peanut butter / red wine Allergy (Unknown, Uncoded 06/16/23 10:10) unknown atnolol Adverse Reaction (Mild, Uncoded 06/16/23 10:10) tired Medication List - Last Reconciled 10/13/23 by Nicko Macias MD lisinopril 40 mg PO DAILY 90 days nd-elx-uaemx acid-lutein 400-250 mcg (Centrum Silver) 1 tab PO DAILY sodium polystyrene sulfonate 15 grams (60 mL) PO DAILY 3 days Tobacco use date assessed: 10/13/23 Fall risk assessment: No Falls in past year Last assessed Fall Risk: 10/13/23 Dental Screening Dental Screen Date: 10/13/23 Did you have a dental visit in the last 12 months?: Yes Did you have a dental problem in the last 6 months where you did not have access to dental care?: No Was dental information given to patient?: Patient has dentist HPI follow up htn HPI Details Patient recently had cardiac pacemaker placed due to complete heart block She was evaluated in our walk-in clinic when she presented with shortness of breath and was sent to emergency room She has appointment coming up with Dr. Bertrand cardiology next week She is feeling much better after the pacemaker Blood pressure is stable last 130/80 Patient says that she had a lot of blood work done already in the hospital We will skip labs this visit Patient will have labs before her next visit in January. [facility] Medical History Nephropathy Allergies Age related osteoporosis Hypertension, essential Surgical History History of hysterectomy Family History Father Parkinson disease Unknown family medical history Mother Dementia Sister Myeloma Social History Household Members Other:: Alone- single, no child Housing: Apartment Alcohol intake: current Alcohol intake frequency: holidays/special occasions only Patient Tobacco Use Status: Never used Tobacco e-Cigarette/Vaping Use: Never Used Current occupational status: retired Cognitive needs: Yes Hearing needs: Yes Vision needs: Yes Questionnaire Thrive Questionnaire Date Thrive assessed: 06/16/23 ADRIAN-7 AMB Questionnaire ADRIAN-7 Date ADRIAN - 7 assessed: 06/16/23 Source: Developed by Drs. Phan Munroe, Avis Hitchcock, Alexi Mina and colleagues, with an educational serjio from [employer]. Review of Systems Const Denies chills and Denies fever(s) ENT Denies epistaxis and Denies nasal discharge Card Denies chest pain Resp Denies chest congestion, Denies cough and Denies hemoptysis GI Denies diarrhea and Denies nausea Skin/Breast Denies rash Neuro Reports no additional complaints Psych Reports no additional complaints Endo Reports no additional complaints Physical exam (Primary Care) Vital Signs: Last Vital Signs Pulse 76 10/13/23 09:45 BP 130/80 10/13/23 09:45 Pulse Ox 98 10/13/23 09:45 Oxygen Delivery Method Room Air 10/13/23 09:45 BMI result Body Mass Index 24.5 Tobacco/Smoking Status: Tobacco use Status Tobacco use date assessed 10/13/23 10/13/23 09:51 Patient Tobacco Use Status Never used Tobacco 10/13/23 09:51 e-Cigarette/Vaping Use Never Used 10/13/23 09:51 Thrive Assessment: Date of Thrive Assessment Date Thrive assessed 06/16/23 10/13/23 09:51 Const General: cooperative, comfortable and no acute distress Orientation/consciousness: patient oriented x3 HENMT Head: Yes normocephalic Eyes General: appearance normal, both eyes and all related structures Neck Neck: Yes supple Resp Effort & Inspection: normal respiratory effort, no cough and no stridor Cardio Rhythm: regular rhythm Heart sounds: S1 normal heart sound present and S2 normal heart sound present Skin General skin exam: turgor normal Neuro General: patient oriented x3, tone normal and moves all extremities Extrem Right lower extremity: no edema Left lower extremity: no edema Assessment and Plan Assessment & Plan (1) Hypertension, essential: Code(s): I10 - Essential (primary) hypertension (2) Age related osteoporosis: Code(s): M81.0 - Age-related osteoporosis without current pathological fracture Qualifiers: Presence of current pathological fracture: without current pathological fracture Qualified Code(s): M81.0 - Age-related osteoporosis without current pathological fracture (3) Nephropathy: Code(s): N28.9 - Disorder of kidney and ureter, unspecified (4) Anxiety, generalized: Code(s): F41.1 - Generalized anxiety disorder (5) Cardiac pacemaker: Code(s): Z95.0 - Presence of cardiac pacemaker Plan Patient recently had cardiac pacemaker placed due to complete heart block She was evaluated in our walk-in clinic when she presented with shortness of breath and was sent to emergency room She has appointment coming up with Dr. Bertrand cardiology next week She is feeling much better after the pacemaker Blood pressure is stable last 130/80 Patient says that she had a lot of blood work done already in the hospital We will skip labs this visit Nephropathy stable Anxiety is much better Patient will have labs before her next visit in January. Orders: Orders Complete Blood Count Auto Diff Today F41.1 - Generalized anxiety disorder, I10 - Essential (primary) hypertension, M81.0 - Age-related osteoporosis without current pathological fracture, N28.9 - Disorder of kidney and ureter, unspecified, Z95.0 - Presence of cardiac pacemaker LDL Cholesterol Direct Today F41.1 - Generalized anxiety disorder, I10 - Essential (primary) hypertension, M81.0 - Age-related osteoporosis without current pathological fracture, N28.9 - Disorder of kidney and ureter, unspecified, Z95.0 - Presence of cardiac pacemaker Comprehensive Met. Panel Today F41.1 - Generalized anxiety disorder, I10 - Essential (primary) hypertension, M81.0 - Age-related osteoporosis without current pathological fracture, N28.9 - Disorder of kidney and ureter, unspecified, Z95.0 - Presence of cardiac pacemaker Medications: Discontinued sodium polystyrene sulfonate Discontinued Reason: Doctor's Order 15 grams (60 mL) PO DAILY 3 days 180 mL 0RF Coding Level of Care Code Est Pt Level 3 (44673) Diagnoses Hypertension, essential I10 Age-related osteoporosis without current pathological fracture M81.0 Presence of current pathological fracture: without current pathological fracture Nephropathy N28.9 Anxiety, generalized F41.1 Cardiac pacemaker Z95.0
== END 2023-10-13 12:00 | disposition home or self-care (01) ==
LOC: HO.HMGC 09:44
PROVIDERS: PCP Internal Medicine; Visit Provider Internal Medicine
DX: I10 Essential (primary) hypertension (principal); M81.0 Age-related osteoporosis without current pathological fracture; N28.9 Disorder of kidney and ureter, unspecified; F41.1 Generalized anxiety disorder; Z95.0 Presence of cardiac pacemaker
CPT/HCPCS: 99213

== ENCOUNTER 2024-01-17 10:50 | Outpatient (REF) | payer OTHER, SELFPAY ==
[2024-01-17 13:21] LABS: MANUAL DIFF FLAG NO
[2024-01-17 13:38] LABS: Basophils Percent Auto 0.6 % (0-2); Eosinophils Absolute Auto 0.2 X10*3/uL (0.0-0.4); Eosinophils Percent Auto 4.2 % (0-4); Hemoglobin 12.8 g/dl (12.0-16.0); Imm Gran Abs Auto 0.02 X10*3/uL (0.00-0.03); Imm Gran Pct Auto 0.4 % (0.0-0.4); Lymphocytes Absolute Auto 1.8 X10*3/uL (1.2-4.9); Lymphocytes Percent Auto 37.7 % (20-40); Mean Corpuscular HGB Conc 32.8 g/dl (31.0-35.0); Mean Corpuscular Hemoglobin 30.3 pg (27.0-33.0); Mean Corpuscular Volume 92.4 fL (80.0-98.0); Mean Platelet Volume 9.3 fL (9.4-12.3); Monocytes Absolute Auto 0.5 X10*3/uL (0.1-1.2); Monocytes Percent Auto 9.5 % (2-11); Neutrophils Absolute Auto 2.2 x10*3/uL (2.0-8.3); Neutrophils Percent Auto 47.6 % (45-73); Platelet Count 295 X10*3/uL (160-400); Red Blood Count 4.22 X10*6/uL (4.20-5.50); Red Cell Distribution Width 12.8 % (11.0-16.0); White Blood Count 4.7 X10*3/uL (4.8-10.8)
[2024-01-17 14:01] LABS: Alanine Aminotransferase 17 U/L (0-31); Albumin Level 4.1 g/dL (3.5-5.0); Alkaline Phosphatase 78 U/L (39-117); Anion Gap 12 (12-20); Aspartate Amino Transferase 22 U/L (5-31); Bilirubin Total 0.4 mg/dL (0.0-1.0); Blood Urea Nitrogen 13 mg/dL (9-16); Calcium 10.5 mg/dL (8.4-10.2); Carbon Dioxide 27 mmol/L (22-29); Chloride 108 mmol/L (96-108); Estimated Glomerular Filt Rate 54; Glucose Random 103 mg/dL (60-115); Potassium 4.9 mmol/L (3.3-5.1); Sodium 142 mmol/L (135-145); Total Protein 7.1 g/dL (6.5-8.0)
[2024-01-18 17:33] LABS: LDL Cholesterol Direct 117 mg/dL (<100)
== END 2024-01-17 10:51 | disposition home or self-care (01) ==
LOC: HO.HMGCLDS 10:50
PROVIDERS: PCP Internal Medicine; Visit Provider Internal Medicine
DX: I10 Essential (primary) hypertension (principal); M81.0 Age-related osteoporosis without current pathological fracture; N28.9 Disorder of kidney and ureter, unspecified; F41.1 Generalized anxiety disorder; Z95.0 Presence of cardiac pacemaker
CPT/HCPCS: 36415; 80053; 83721; 85025

== ENCOUNTER 2024-02-01 10:04 | Outpatient (AMB) | payer OTHER, SELFPAY ==
[2024-02-01 10:10] VITALS: BP 148/82; PULSE 86; O2SAT 96; BMI 25.5
--- NOTE | 2024-02-01 10:10 | A.OFFPC_ITS ---
Vital Signs 02/01/24 10:10 Height 5 ft 4 in Weight 148 lb 6 oz BMI 25.5 BP 148/82 H Blood Pressure Location Rt brachial Position Sitting Pulse 86 Pulse Source Pulse Oximeter Pulse Oximetry (%) 96 Oxygen Delivery Method Room Air Intake Visit Reasons: follow up Allergies peanut butter / red wine Allergy (Unknown, Uncoded 06/16/23 10:10) unknown atnolol Adverse Reaction (Mild, Uncoded 06/16/23 10:10) tired Medication List - Last Reconciled 02/01/24 by Nicko Macias MD lisinopril 40 mg PO DAILY 90 days qm-bea-xrogf acid-lutein 400-250 mcg (Centrum Silver) 1 tab PO DAILY Tobacco use date assessed: 02/01/24 Fall risk assessment: No Falls in past year Last assessed Fall Risk: 02/01/24 Dental Screening Dental Screen Date: 02/01/24 Did you have a dental visit in the last 12 months?: Yes Did you have a dental problem in the last 6 months where you did not have access to dental care?: No Was dental information given to patient?: Patient has dentist HPI follow up HPI Details Patient is 83-year-old female came in for regular 4 month follow-up visit Patient have cardiac pacemaker was placed due to complete heart block, 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 She is doing well Blood pressure elevated today at 148/82 I rechecked after 5 minute and it is 140 x 80 Patient says that she is feeling very anxious due to our check in process, there were several questions that she did not know how to answer However she is monitoring her blood pressure at home and it is running around 110 systolic and sometimes even lower like 108 Patient says that she feels tired and dizzy at that time She will bring her blood pressure monitor along next visit Meanwhile I am reducing the dose to 30 mg Labs done recently reviewed Nephropathy stable Anxiety is still there but manageable Follow-up 4 months [facility], [facility] Medical History Nephropathy Allergies Age related osteoporosis Hypertension, essential Surgical History History of hysterectomy Family History Father Parkinson disease Unknown family medical history Mother Dementia Sister Myeloma Social History Household Members Other:: Alone- single, no child Housing: Apartment Alcohol intake: current Alcohol intake frequency: holidays/special occasions only Patient Tobacco Use Status: Never used Tobacco e-Cigarette/Vaping Use: Never Used service: No Current occupational status: retired Cognitive needs: Yes Hearing needs: Yes Vision needs: Yes Questionnaire PHQ-9 Over the last 2 weeks, how often have you been bothered by any of the following problems? [id number] - PHQ-9 Billing: Patient declined-do not bill Source: Developed by Drs. Phan Munroe, Avis Hitchcock, Alexi Mina and colleagues, with an educational serjio from [employer]. Thrive Questionnaire Date Thrive assessed: 02/01/24 I am a: Patient What is your living situation today?: I have a steady place to live Within the past 12 months, did the food you bought not last and you didn't have the money to get more?: Never true Do you have trouble paying for medicines?: No Do you have trouble getting transportation to medical appointments?: No Do you have trouble paying your heating and electricity bill?: No Do you have trouble taking care of your child, family member or friend?: No Do you have trouble with day-to-day activities such as bathing, preparing meals, shopping, managing finances, etc.?: No Are you currently unemployed and looking for a job?: No Are you interested in more education?: No Please select the resources that you would like help with: None Currently or been in a relationship where the following occur: No concerns reported THRIVE Score: 0 AUDIT C Alcohol Use Questionnaire (AUDIT-C) 1. How often do you have a drink containing alcohol?: Never 3. How often do you have six or more drinks on one occasion?: Never Total Score: 0 Score Reviewed/Action Taken: Yes ADRIAN-7 AMB Questionnaire ADRIAN-7 Date ADRIAN - 7 assessed: 02/01/24 Source: Developed by Drs. Phan Munroe, Avis Hitchcock, Alexi Mina and colleagues, with an educational serjio from [employer]. ADRIAN-7 Assessment Billing ADRIAN-7 Assessment Tool: pt declined-do not bill Review of Systems Const Denies chills and Denies fever(s) ENT Denies epistaxis and Denies nasal discharge Card Denies chest pain Resp Denies chest congestion, Denies cough and Denies hemoptysis GI Denies diarrhea and Denies nausea Skin/Breast Denies rash Neuro Reports no additional complaints Psych Reports no additional complaints Endo Reports no additional complaints Physical exam (Primary Care) Vital Signs: Last Vital Signs Pulse 86 02/01/24 10:10 BP 148/82 H 02/01/24 10:10 Pulse Ox 96 02/01/24 10:10 Oxygen Delivery Method Room Air 02/01/24 10:10 BMI result Body Mass Index 25.5 Tobacco/Smoking Status: Tobacco use Status Tobacco use date assessed 02/01/24 02/01/24 10:16 Patient Tobacco Use Status Never used Tobacco 02/01/24 10:16 e-Cigarette/Vaping Use Never Used 02/01/24 10:16 Thrive Assessment: Date of Thrive Assessment Date Thrive assessed 02/01/24 02/01/24 10:16 Currently or been in a relationship where the following occur: No concerns reported Const General: cooperative, comfortable and no acute distress Orientation/consciousness: patient oriented x3 HENMT Head: Yes normocephalic Eyes General: appearance normal, both eyes and all related structures Neck Neck: Yes supple Resp Effort & Inspection: normal respiratory effort, no cough and no stridor Cardio Rhythm: regular rhythm Heart sounds: S1 normal heart sound present and S2 normal heart sound present Skin General skin exam: turgor normal Neuro General: patient oriented x3, tone normal and moves all extremities Extrem Right lower extremity: no edema Left lower extremity: no edema Assessment and Plan Assessment & Plan (1) Hypertension, essential: Code(s): I10 - Essential (primary) hypertension (2) Age related osteoporosis: Code(s): M81.0 - Age-related osteoporosis without current pathological fracture Qualifiers: Presence of current pathological fracture: without current pathological fracture Qualified Code(s): M81.0 - Age-related osteoporosis without current pathological fracture (3) Nephropathy: Code(s): N28.9 - Disorder of kidney and ureter, unspecified (4) Anxiety, generalized: Code(s): F41.1 - Generalized anxiety disorder (5) Cardiac pacemaker: Code(s): Z95.0 - Presence of cardiac pacemaker Plan Patient is 83-year-old female came in for regular 4 month follow-up visit Patient have cardiac pacemaker was placed due to complete heart block, 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 She is doing well Blood pressure elevated today at 148/82 I rechecked after 5 minute and it is 140 x 80 Patient says that she is feeling very anxious due to our check in process, there were several questions that she did not know how to answer However she is monitoring her blood pressure at home and it is running around 110 systolic and sometimes even lower like 108 Patient says that she feels tired and dizzy at that time She will bring her blood pressure monitor along next visit Meanwhile I am reducing the dose to 30 mg Labs done recently reviewed Nephropathy stable Anxiety is still there but manageable Follow-up 4 months Medications: Changed From lisinopril 40 mg PO DAILY 90 days 90 tabs 0RF To lisinopril 30 mg PO DAILY 90 days 90 tabs 1RF Coding Level of Care Code Est Pt Level 4 (82069) Diagnoses Hypertension, essential I10 Age-related osteoporosis without current pathological fracture M81.0 Presence of current pathological fracture: without current pathological fracture Nephropathy N28.9 Anxiety, generalized F41.1 Cardiac pacemaker Z95.0
== END 2024-02-01 10:43 | disposition home or self-care (01) ==
PROVIDERS: PCP Internal Medicine; Visit Provider Internal Medicine
DX: I10 Essential (primary) hypertension (principal); M81.0 Age-related osteoporosis without current pathological fracture; N28.9 Disorder of kidney and ureter, unspecified; F41.1 Generalized anxiety disorder; Z95.0 Presence of cardiac pacemaker
CPT/HCPCS: 99214

== ENCOUNTER 2024-02-07 11:08 | Outpatient (REF) | payer OTHER, SELFPAY | END 2024-02-07 11:09 | disposition home or self-care (01) | LOC: HO.MAMMO 11:08 | PROVIDERS: Visit Provider Internal Medicine | DX: Z12.31 Encounter for screening mammogram for malignant neoplasm of breast (principal) | CPT/HCPCS: 77063; 77067 ==

== ENCOUNTER → 2024-02-07 11:30 | Outpatient (BNV) | payer OTHER, SELFPAY | PROVIDERS: Visit Provider Radiology Diagnostic Radiology | DX: Z12.31 Encounter for screening mammogram for malignant neoplasm of breast (principal) | CPT/HCPCS: 77063; 77067 ==

== ENCOUNTER 2024-03-13 10:21 | Outpatient (AMB) | payer OTHER, SELFPAY ==
--- NOTE | 2024-03-13 11:03 | AM.OFFWIN_ITS ---
Intake Vital Signs 03/13/24 11:04 Height 5 ft 4 in Weight 135 lb BMI 23.2 BP 134/82 Blood Pressure Location Rt brachial Position Sitting Pulse 79 Pulse Source Pulse Oximeter Temp 98.7 F Temp Source Oral Pulse Oximetry (%) 97 Oxygen Delivery Method Room Air Intake Visit Reasons: EP- RT knee, LT wrist, RT Hand, Cut on face Intake Note: Pt c/o RT knee, LT wrist, RT hand pain and cut over LT eyebrow. On , I was in a parking lot rushing to get to my next appointment, and my sneaker caug ht edge of curbing and fell forward Patient Tobacco Use Status: Never used Tobacco Allergies peanut butter / red wine Allergy (Unknown, Uncoded 03/13/24 11:04) unknown atnolol Adverse Reaction (Mild, Uncoded 03/13/24 11:04) tired Do you need a note to return to daycare/school/sports/work: No HPI HPI Comments History of Present Illness Details Patient is an 83-year-old female stating that she fell while trying to jolley to go to an appointment 4 days ago. She states she caught her sneaker on the edge of the curb and tripped and fell on outstretched hands. She states she injured her right knee, left wrist, has right hand pain and she sustained a cut over her left eyebrow. She was able to walk immediately after she tripped and fell. She states everything seems to be getting better except for her left wrist. She has been wearing a brace on her knee and on her left wrist. She states she has full range of motion but with some pain of the left wrist. [facility] Medical History Nephropathy Allergies Age related osteoporosis Hypertension, essential Surgical History History of hysterectomy Family History Father Parkinson disease Unknown family medical history Mother Dementia Sister Myeloma Social History Household Members Other:: Alone- single, no child Housing: Apartment Alcohol intake: current Alcohol intake frequency: holidays/special occasions only Patient Tobacco Use Status: Never used Tobacco e-Cigarette/Vaping Use: Never Used service: No Current occupational status: retired Cognitive needs: Yes Hearing needs: Yes Vision needs: Yes Review of Systems Const All systems reviewed & are unremarkable except as noted in HPI and below Physical Exam Vital Signs: Last Vital Signs Temp 98.7 F 03/13/24 11:04 Pulse 79 03/13/24 11:04 BP 134/82 03/13/24 11:04 Pulse Ox 97 03/13/24 11:04 Oxygen Delivery Method Room Air 03/13/24 11:04 BMI result Body Mass Index 23.2 Const General: cooperative, healthy appearing, comfortable, no acute distress and well developed Orientation/consciousness: patient oriented x3 Limitations: no limitations HEENT Head: Yes normal to inspection Eyes Other: Small healing scrape on left eyebrow, no signs of infection noted General: appearance normal, both eyes and all related structures Neck Neck: Yes normal visual inspection and Yes full ROM Resp Effort & Inspection: normal respiratory effort and able to speak in complete sentences Skin General skin exam: no rashes or lesions noted Neuro General: patient oriented x3 Extrem Right upper extremity: normal to inspection, full ROM, normal capillary refill, wrist Details: normal to inspection, normal ROM and normal vascular exam; no tenderness, no swelling, no unusual warmth, no abrasions, no lacerations and no ecchymosis and Extremity exam: right hand (Negative snuffbox tenderness) Details: normal to inspection, normal capillary refill, neuromotor exam normal, neurosensory exam normal, tendon exam normal, vascular exam Details: normal capi llary refill, normal ROM of fingers and no swelling; no tenderness, no unusual warmth, no abrasions, no lacerations and no ecchymosis Left upper extremity: elbow/forearm (6 cm x 3 cm area of ecchymosis on medial elbow, no TTP of elbow joint) Details: normal ROM; no tenderness and no swelling, wrist (full ROM, some pain with supination and pronation) and hand (Negative snuffbox tenderness) Details: normal to inspection, normal capillary refill, neuromotor exam normal, neurosensory exam normal, tendon exam normal, vascular exam Details: normal capillary refill, normal ROM of fingers and no swelling; no tenderness, no unusual warmth, no abrasions, no lacerations and no ecchymosis Assessment & Plan Assessment & Plan (1) Hand injury: Code(s): S69.90XA - Unspecified injury of unspecified wrist, hand and finger(s), initial encounter Qualifiers: Encounter type: initial encounter Laterality: left Qualified Code(s): S69.92XA - Unspecified injury of left wrist, hand and finger(s), initial encounter Plan: X-ray negative for fracture, recommended she continue using the wrist immobiliz er she has to rest at, she can use ice, NSAIDs and follow up with her primary care doctor if no improvement over the next week or two. Plan see above Orders: Orders XR hand wrist LT Today S69.90XA - Unspecified injury of unspecified wrist, hand and finger(s), initial encounter Coding Level of Care Code Est Pt Level 3 (98478) Diagnoses Injury of left hand, initial encounter S69.92XA Encounter type: initial encounter Laterality: left
[2024-03-13 11:04] VITALS: BP 134/82; PULSE 79; TEMP 37.1; O2SAT 97; BMI 23.2
== END 2024-03-13 11:50 | disposition home or self-care (01) ==
PROVIDERS: PCP Internal Medicine; Visit Provider Physician Assistant
DX: S69.92XA Unspecified injury of left wrist, hand and finger(s), initial encounter (principal)
CPT/HCPCS: 99213

== ENCOUNTER 2024-03-13 11:27 | Outpatient (REF) | payer OTHER, SELFPAY ==
--- NOTE | ~2024-03-13 | XR_ITS ---
EXAMINATION: XR HAND/WRIST, LEFT CLINICAL INFORMATION: Injury. COMPARISON: None TECHNIQUE: PA, lateral, and oblique views of the left hand and wrist. FINDINGS: No acute fracture or dislocation. Normal carpal alignment. Joint space narrowing with marginal osteophytes at the triscaphe and first carpal metacarpal joints. Additional joint space narrowing with marginal osteophytes throughout the interphalangeal joints, most severe at the third distal interphalangeal joint. Possible small central erosions at the second, third, and fourth distal interphalangeal joints. No abnormal soft tissue calcification. XR/XR hand wrist LT IMPRESSION: 1. No acute fracture or dislocation. 2. Degenerative arthritis at the triscaphe and first carpometacarpal joints as well as throughout the interphalangeal joints, most severe at the third distal interphalangeal joint. Possible small central erosions at the second, third, and fourth distal interphalangeal joints, which could indicate a degree of erosive osteoarthritis.
== END 2024-03-13 11:28 | disposition home or self-care (01) ==
LOC: HO.HMGCX 11:27
PROVIDERS: PCP Internal Medicine; Visit Provider Physician Assistant
DX: S69.92XA Unspecified injury of left wrist, hand and finger(s), initial encounter (principal)
CPT/HCPCS: 73110; 73130

== ENCOUNTER 2024-06-06 10:05 | Outpatient (AMB) | payer OTHER, SELFPAY ==
[2024-06-06 10:17] VITALS: BP 136/78; PULSE 83; O2SAT 98; BMI 23.7
--- NOTE | 2024-06-06 10:17 | A.OFFPC_ITS ---
Vital Signs 06/06/24 10:17 Height 5 ft 4 in Weight 138 lb BMI 23.7 BP 136/78 Blood Pressure Location Rt brachial Position Sitting Pulse 83 Pulse Source Pulse Oximeter Pulse Oximetry (%) 98 Oxygen Delivery Method Room Air Intake Visit Reasons: 4 month follow up Allergies peanut butter / red wine Allergy (Unknown, Uncoded 03/13/24 11:04) unknown atnolol Adverse Reaction (Mild, Uncoded 03/13/24 11:04) tired Medication List - Last Reconciled 06/06/24 by Nicko Macias MD acetaminophen (Tylenol Extra Strength) 500 mg PO Q6H PRN lisinopril 30 mg PO DAILY 90 days de-ucq-dixxh acid-lutein 400-250 mcg (Centrum Silver) 1 tab PO DAILY Tobacco use date assessed: 02/01/24 Dental Screening Dental Screen Date: 02/01/24 HPI 4 month follow up HPI Details Patient is 83-year-old female with a history of hypertension, hypercalcemia, nephropathy, acid reflux, age-related osteoporosis , 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 Came today for follow-up appointment or blood pressure Last set of lab was December of this year Patient is due for labs I have added parathyroid hormone level as well, due to elevated calcium level Blood pressure is controlled Patient is taking lisinopril 30 mg, and tolerating medication GFR is stable in 50s Acid reflux /dyspepsia, stable Allergies stable Follow-up 6 months PFSH Medical History Nephropathy Allergies Age related osteoporosis Hypertension, essential Surgical History History of hysterectomy Family History Father Parkinson disease Unknown family medical history Mother Dementia Sister Myeloma Social History Household Members Other:: Alone- single, no child Housing: Apartment Alcohol intake: current Alcohol intake frequency: holidays/special occasions only Patient Tobacco Use Status: Never used Tobacco e-Cigarette/Vaping Use: Never Used service: No Current occupational status: retired Cognitive needs: Yes Hearing needs: Yes Vision needs: Yes Questionnaire Thrive Questionnaire Date Thrive assessed: 06/06/24 I am a: Patient What is your living situation today?: I choose not to answer this question Within the past 12 months, did the food you bought not last and you didn't have the money to get more?: I choose not to answer this question Within the past 12 months, did you worry whether your food would run out before you got money to buy more?: I choose not to answer this question Do you have trouble paying for medicines?: I choose not to answer this question Do you have trouble getting transportation to medical appointments?: I choose not to answer this question Do you have trouble paying your heating and electricity bill?: I choose not to answer this question Do you have trouble taking care of your child, family member or friend?: I choose not to answer this question Do you have trouble with day-to-day activities such as bathing, preparing meals, shopping, managing finances, etc.?: I choose not to answer this question Are you currently unemployed and looking for a job?: I choose not to answer this question Are you interested in more education?: I choose not to answer this question Please select the resources that you would like help with: None Currently or been in a relationship where the following occur: I choose not to answer THRIVE Score: 0 AUDIT C Alcohol Use Questionnaire (AUDIT-C) 1. How often do you have a drink containing alcohol?: Never Total Score: 0 ADRIAN-7 AMB Questionnaire ADRIAN-7 Date ADRIAN - 7 assessed: 02/01/24 Source: Developed by Drs. Phan Munroe, Avis Hitchcock, Alexi Mina and colleagues, with an educational serjio from [employer]. Review of Systems Const Denies chills and Denies fever(s) ENT Denies epistaxis and Denies nasal discharge Card Denies chest pain Resp Denies chest congestion, Denies cough and Denies hemoptysis GI Denies diarrhea and Denies nausea Skin/Breast Denies rash Neuro Reports no additional complaints Psych Reports no additional complaints Endo Reports no additional complaints Physical exam (Primary Care) Vital Signs: Last Vital Signs Pulse 83 06/06/24 10:17 BP 136/78 06/06/24 10:17 Pulse Ox 98 06/06/24 10:17 Oxygen Delivery Method Room Air 06/06/24 10:17 BMI result Body Mass Index 23.7 Tobacco/Smoking Status: Tobacco use Status Tobacco use date assessed 02/01/24 06/06/24 10:19 Patient Tobacco Use Status Never used Tobacco 06/06/24 10:19 e-Cigarette/Vaping Use Never Used 06/06/24 10:19 Thrive Assessment: Date of Thrive Assessment Date Thrive assessed 06/06/24 06/06/24 10:19 Currently or been in a relationship where the following occur: I choose not to answer Const General: cooperative, comfortable and no acute distress Orientation/consciousness: patient oriented x3 HENMT Head: Yes normocephalic Eyes General: appearance normal, both eyes and all related structures Neck Neck: Yes supple Resp Effort & Inspection: normal respiratory effort, no cough and no stridor Cardio Rhythm: regular rhythm Heart sounds: S1 normal heart sound present and S2 normal heart sound present Skin General skin exam: turgor normal Neuro General: patient oriented x3, tone normal and moves all extremities Extrem Right lower extremity: no edema Left lower extremity: no edema Coding Level of Care Code Est Pt Level 4 (65800) Diagnoses Hypertension, essential I10 Age-related osteoporosis without current pathological fracture M81.0 Presence of current pathological fracture: without current pathological fracture Nephropathy N28.9 Dyspepsia R10.13 Serum calcium elevated E83.52 Assessment & Plan Assessment & Plan (1) Hypertension, essential: Code(s): I10 - Essential (primary) hypertension Category: Medical (2) Age related osteoporosis: Code(s): M81.0 - Age-related osteoporosis without current pathological fracture Category: Medical Qualifiers: Presence of current pathological fracture: without current pathological fracture Qualified Code(s): M81.0 - Age-related osteoporosis without current pathological fracture (3) Nephropathy: Code(s): N28.9 - Disorder of kidney and ureter, unspecified Category: Medical (4) Dyspepsia: Code(s): R10.13 - Epigastric pain Category: Medical (5) Serum calcium elevated: Code(s): E83.52 - Hypercalcemia Category: Medical Plan Patient is 83-year-old female with a history of hypertension, hypercalcemia, nephropathy, acid reflux, age-related osteoporosis 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 Panel Today E83.52 - Hypercalcemia, I10 - Essential (primary) hypertension, M81.0 - Age-related osteoporosis without current pathological fracture, N28.9 - Disorder of kidney and ureter, unspecified, R10.13 - Epigastric pain, T78.40XA - Allergy, unspecified, initial encounter Parathyroid Hormone Related Pr Today E83.52 - Hypercalcemia, I10 - Essential (primary) hypertension, M81.0 - Age-related osteoporosis without current pathological fracture, N28.9 - Disorder of kidney and ureter, unspecified, R10.13 - Epigastric pain, T78.40XA - Allergy, unspecified, initial encounter
== END 2024-06-06 11:31 | disposition home or self-care (01) ==
LOC: HO.HMCC 10:06
PROVIDERS: PCP Internal Medicine; Visit Provider Internal Medicine
DX: I10 Essential (primary) hypertension (principal); M81.0 Age-related osteoporosis without current pathological fracture; N28.9 Disorder of kidney and ureter, unspecified; R10.13 Epigastric pain; E83.52 Hypercalcemia

== ENCOUNTER 2024-06-06 10:05 | Outpatient (REF) | payer OTHER, SELFPAY ==
[2024-06-06 14:03] LABS: Alanine Aminotransferase 22 U/L (0-31); Albumin Level 4.2 g/dL (3.5-5.0); Alkaline Phosphatase 81 U/L (39-117); Anion Gap 14 (12-20); Aspartate Amino Transferase 27 U/L (5-31); Bilirubin Total 0.3 mg/dL (0.0-1.0); Blood Urea Nitrogen 14 mg/dL (9-16); Calcium 11.3 mg/dL (8.4-10.2); Carbon Dioxide 25 mmol/L (22-29); Chloride 106 mmol/L (96-108); Estimated Glomerular Filt Rate 59; Glucose Random 105 mg/dL (60-115); Potassium 4.9 mmol/L (3.3-5.1); Sodium 140 mmol/L (135-145); Total Protein 7.2 g/dL (6.5-8.0)
[2024-06-16 02:23] LABS: Parathyroid Hormone Related Pr 18 pg/mL (11-20)
== END 2024-06-06 10:06 | disposition home or self-care (01) ==
LOC: HO.HMGCLDS 10:05
PROVIDERS: PCP Internal Medicine; Visit Provider Internal Medicine
DX: I10 Essential (primary) hypertension (principal); M81.0 Age-related osteoporosis without current pathological fracture; T78.40XA Allergy, unspecified, initial encounter; N28.9 Disorder of kidney and ureter, unspecified; R10.13 Epigastric pain; E83.52 Hypercalcemia
CPT/HCPCS: 36415; 80053; 83519

== ENCOUNTER 2024-09-05 10:32 | Outpatient (AMB) | payer OTHER, SELFPAY ==
--- NOTE | 2024-09-05 11:25 | MHC.OFFWIV ---
Intake Vital Signs 09/05/24 11:35 Weight 138 lb BP 140/90 H Blood Pressure Location Rt brachial Position Sitting Pulse 90 Pulse Source Pulse Oximeter Temp 98.1 F Temp Source Oral Pulse Oximetry (%) 98 Intake Visit Reasons: EP ? UTI Intake Note: Patient here for lower abdominal pain, burning sensation, small amounts of urine and frequency which started about 2 days ago. Patient Tobacco Use Status: Never used Tobacco Allergies peanut butter / red wine Allergy (Unknown, Uncoded 09/05/24 11:35) unknown atnolol Adverse Reaction (Mild, Uncoded 09/05/24 11:35) tired Do you need a note to return to daycare/school/sports/work: No HPI HPI Comments History of Present Illness Details History of Present Illness - The patient is an 84-year-old female presenting with suspected urinary tract infection. - Symptoms started two days ago with a slow stream, frequent urination, and burning sensation during urination, without fever or hematuria. - She experienced mild lower back pain but reported no kidney stone history. - Elevated blood pressure noted, potentially due to discomfort or infection, while on anti-hypertensive treatment. - Empirical use of garlic tea as a remedy improved symptoms transiently. Physical Exam General: Cooperative, healthy appearing, comfortable, no acute distress and well developed Orientation: Patient oriented x3 Limitations: No limitations Head: Normal to inspection Ears: Hearing aid present, hearing grossly normal bilaterally Nose: Normal external nose present Face and sinus: Normal facial exam Eyes: Appearance normal, both eyes and all related structures Neck: Normal visual inspection and Yes full ROM Respiratory: Normal respiratory effort and able to speak in complete sentences Skin: No rashes or lesions noted Neuro: Patient oriented x3 Extremities: Normal to inspection [facility] Medical History Nephropathy Allergies Age related osteoporosis Hypertension, essential Surgical History History of hysterectomy Family History Father Parkinson disease Unknown family medical history Mother Dementia Sister Myeloma Social History Household Members Other:: Alone- single, no child Housing: Apartment Alcohol intake: current Alcohol intake frequency: holidays/special occasions only Patient Tobacco Use Status: Never used Tobacco e-Cigarette/Vaping Use: Never Used service: No Current occupational status: retired Cognitive needs: Yes Hearing needs: Yes Vision needs: Yes Review of Systems Const All systems reviewed & are unremarkable except as noted in HPI and below Physical Exam Vital Signs: Last Vital Signs Temp 98.1 F 09/05/24 11:35 Pulse 90 09/05/24 11:35 BP 140/90 H 09/05/24 11:35 Pulse Ox 98 09/05/24 11:35 Results AMB Urinalysis, Automated UA Leukoctes 0 Yasmine/uL Last Edit by Marium Torres CCM on 09/05/24 11:39 UA Nitrite Negative Last Edit by Marium Torres [facility] on 09/05/24 11:39 UA Urobilinogen 0.2 mg/dL Last Edit by Marium Torres [facility] on 09/05/24 11:39 UA Protein 0 mg/dL Last Edit by Marium Torres [facility] on 09/05/24 11:39 UA pH 6.0 Last Edit by Marium Torres [facility] on 09/05/24 11:39 UA Blood 10 Brendon/uL Last Edit by Marium Torres [facility] on 09/05/24 11:39 UA Specific Jolo 1.015 Last Edit by Marium Torres [facility] on 09/05/24 11:39 UA Ketone Negative Last Edit by Marium Torres [facility] on 09/05/24 11:39 UA Bilirubin 0 mg/dL Last Edit by Marium Torres [facility] on 09/05/24 11:39 UA Glucose 0 mg/dL Last Edit by Marium Torres [facility] on 09/05/24 11:39 Results Reviewed Results Reviewed: Laboratory Last Values Urine pH (Auto) 6.0 09/05/24 11:38 Specific Jolo (Auto) 1.015 09/05/24 11:38 Urine Protein (Auto) 0 mg/dL 09/05/24 11:38 Glucose (UA)(Auto) 0 mg/dL 09/05/24 11:38 Urine Ketones (Auto) Negative 09/05/24 11:38 Urine Blood (Auto) 10 Brendon/uL 09/05/24 11:38 Urine Nitrite (Auto) Negative 09/05/24 11:38 Urine Bilirubin (Auto) 0 mg/dL 09/05/24 11:38 Urine Urobilinogen (Auto) 0.2 mg/dL 09/05/24 11:38 Leukocyte Esterase (Auto) 0 Yasmine/uL 09/05/24 11:38 Assessment & Plan Assessment & Plan (1) UTI (urinary tract infection): Code(s): N39.0 - Urinary tract infection, site not specified Qualifiers: Urinary tract infection type: acute cystitis Hematuria presence: with hematuria Qualified Code(s): N30.01 - Acute cystitis with hematuria Plan: The patient will receive antibiotic treatment for the suspected urinary tract infection, even though initial urinalysis results are negative, due to symptom presentation. A urine culture will verify bacterial presence, and adjustments to the antibiotic will be made if necessary. The patient is advised to monitor blood pressure, address any persistent or new symptoms, and pursue follow-up with Dr. Macias for ongoing management of hypertension. Patient was informed and verbally consented to the use of an ambient scribe for clinic note documentation during this visit. Orders: Orders AMB Urinalysis Automated Today Z13.9 - Encounter for screening, unspecified Urine Culture Today N39.0 - Urinary tract infection, site not specified Medications: New cefuroxime axetil 500 mg PO Q12H 10 tabs 0RF Coding Level of Care Code Est Pt Level 3 (78405) Diagnoses Acute cystitis with hematuria N30.01 Urinary tract infection type: acute cystitis Hematuria presence: with hematuria
[2024-09-05 11:35] VITALS: BP 140/90; PULSE 90; TEMP 36.7; O2SAT 98
== END 2024-09-05 11:59 | disposition home or self-care (01) ==
PROVIDERS: PCP Internal Medicine; Visit Provider Physician Assistant
DX: Z13.9 Encounter for screening, unspecified (principal); N30.01 Acute cystitis with hematuria

== ENCOUNTER 2024-09-05 10:32 | Outpatient (REF) | payer OTHER, SELFPAY | END 2024-09-05 10:33 | disposition home or self-care (01) | LOC: HO.LAB 10:32 | PROVIDERS: PCP Internal Medicine | DX: N30.01 Acute cystitis with hematuria (principal) | CPT/HCPCS: 81003 ==

== ENCOUNTER 2024-09-19 08:24 | Outpatient (REF) | payer OTHER, SELFPAY ==
--- OUTSIDE RECORDS SUMMARY | 2024-09-19 08:39 | XMS_ITS | Patient Health Record ---
[facility] Address [address] [place] [address] Care Team Providers Care Director Emergency Department Name Role Phone [facility] Provider Levon Yi Unavailable [phone] Allergies Allergen (clinical drug ingredient) Drug/Non Drug Allergy documented on EMR Reaction Allergy Type Onset Date Status Peanut Butter Flavor Unknown Drug Allergy Active Red Wine Complex Unknown Drug Allergy Active Reason For Referral No Information Medications Medication SIG (Take, Route, Fr equency, Duration) Notes Start Date End Date Status Centrum Silver - as directed Orally 04/11/2021 Active Lisinopril 30 MG 1 tablet Orally Once a day for 30 day(s) 04/11/2021 Active Immunizations Vaccine Route Administration Date Status Comme nts COVID-19 Pfizer BioNTech Vaccine Unknown 09/03/2021 Administered 1st 01/28/21 2nd 02/25/21 Social History Tobacco Use: Social History Observation Description Date Details (start date - stop date) Never Smoker NA - NA Tobacco Use/Smoking Question Answer Notes Are you a: nonsmoker Additional Findings: Tobacco Non-User Current no n-smoker Alcohol Screen Question Answer Notes Did you have a drink contain ing alcohol in the past year? Yes How often did you have a dri nk containing alcohol in the past year? Monthly or less (1 point) Points 1 Interpretation Negative Tobacco use other than smoking: Question Answer Notes Are you an other tobacco user? No Problems Problem Type SNOMED Code ICD Code Onset Dates Problem Status W/U Status Risk Notes Problem Tinea unguium (060582298) Tinea unguium (B35.1) Active confirmed Problem Ingrowing nail ([id number]) Ingrowing nail (L60.0) Active confirmed Plan Of Treatment Pending Test Test Name Order Date [id number] Plate 04/15/2021 [id number] Plate 12/09/2021 Insurance Providers Payer Name Payer Address Payer Phone Subscriber Number Group Number Insured Name Patient Relationship to Insured Coverage Start Date Coverage End Date [employer] [facility] [address] [place] [address] [id number] [facility] Rehana Leavitt Self - patient is the insured Medical (General) History Medical History History ICD Code Broken bones Cataracts Hiatal hernia High blood pressure Macular degeneration Osteoporosis chronic sinusitis Chicken pox Measles Mumps Surgical History Surgery Date(Month/Year) tonsillectomy 1950 partial hysterectomy 10/20/78 hysterectomy, total 10/28/81 elbow sx 05/08/13
[2024-09-19 09:54] LABS: MANUAL DIFF FLAG NO
[2024-09-19 09:57] LABS: Basophils Percent Auto 0.2 % (0-2); Eosinophils Absolute Auto 0.1 X10*3/uL (0.0-0.4); Eosinophils Percent Auto 2.6 % (0-4); Hematocrit 40.9 % (37.0-47.0); Hemoglobin 13.4 g/dl (12.0-16.0); Imm Gran Abs Auto 0.02 X10*3/uL (0.00-0.03); Imm Gran Pct Auto 0.4 % (0.0-0.4); Lymphocytes Absolute Auto 1.7 X10*3/uL (1.2-4.9); Lymphocytes Percent Auto 37.6 % (20-40); Mean Corpuscular HGB Conc 32.8 g/dl (31.0-35.0); Mean Corpuscular Hemoglobin 30.1 pg (27.0-33.0); Mean Corpuscular Volume 91.9 fL (80.0-98.0); Mean Platelet Volume 9.3 fL (9.4-12.3); Monocytes Absolute Auto 0.5 X10*3/uL (0.1-1.2); Monocytes Percent Auto 10.2 % (2-11); Neutrophils Absolute Auto 2.3 x10*3/uL (2.0-8.3); Platelet Count 326 X10*3/uL (160-400); Red Blood Count 4.45 X10*6/uL (4.20-5.50); Red Cell Distribution Width 12.6 % (11.0-16.0); White Blood Count 4.6 X10*3/uL (4.8-10.8)
[2024-09-19 10:01] LABS: INTERNATIONAL NORM RATIO 0.9 (0.9-1.1); Prothrombin Time 10.1 SEC (10.9-12.4)
[2024-09-19 10:32] LABS: Alanine Aminotransferase 21 U/L (0-31); Albumin Level 4.2 g/dL (3.5-5.0); Alkaline Phosphatase 76 U/L (39-117); Anion Gap 10 (12-20); Aspartate Amino Transferase 31 U/L (5-31); Bilirubin Total 0.5 mg/dL (0.0-1.0); Blood Urea Nitrogen 15 mg/dL (9-16); Calcium 10.5 mg/dL (8.4-10.2); Carbon Dioxide 27 mmol/L (22-29); Chloride 108 mmol/L (96-108); Estimated Glomerular Filt Rate > 60; Glucose Random 94 mg/dL (60-115); Potassium 4.3 mmol/L (3.3-5.1); Sodium 141 mmol/L (135-145); Total Protein 7.5 g/dL (6.5-8.0)
[2024-09-20 05:48] LABS: LDL Cholesterol Direct 113 mg/dL (<100)
[2024-09-24 12:18] LABS: Vitamin D 25-OH, D2 <4 ng/mL; Vitamin D 25-OH, D3 43 ng/mL; Vitamin D 25-OH, Total 43 ng/mL (30-100)
== END 2024-09-19 08:25 | disposition home or self-care (01) ==
LOC: HO.HMGCLDS 08:24
PROVIDERS: PCP Internal Medicine; Visit Provider Internal Medicine
DX: Z01.818 Encounter for other preprocedural examination (principal); I10 Essential (primary) hypertension; M81.0 Age-related osteoporosis without current pathological fracture; N28.9 Disorder of kidney and ureter, unspecified; Z79.01 Long term (current) use of anticoagulants
CPT/HCPCS: 36415; 80053; 82306; 83721; 85025; 85610

== ENCOUNTER 2024-10-11 15:12 | Outpatient (AMB) | payer OTHER, SELFPAY ==
[2024-10-11 15:13] VITALS: BP 144/78; PULSE 85; RESP 16; TEMP 36.7; O2SAT 97; BMI 23.5
--- NOTE | 2024-10-11 15:13 | MHC.PC.OV ---
Vital Signs 10/11/24 15:13 Height 5 ft 4 in Weight 137 lb BMI 23.5 BP 144/78 H Blood Pressure Location Rt brachial Position Sitting Respiration 16 Pulse 85 Temp 98.1 F Temp Source Oral Pulse Oximetry (%) 97 Oxygen Delivery Method Room Air Intake Visit Reasons: Cateract Surgery LT. EYE Allergies peanut butter / red wine Allergy (Unknown, Uncoded 09/05/24 11:35) unknown atnolol Adverse Reaction (Mild, Uncoded 09/05/24 11:35) tired Medication List - Last Reconciled 10/11/24 by Nicko Macias MD lisinopril 30 mg PO DAILY 90 days npyuxpfc-rxc-bcykv acid-lutein 400-250 mcg (Centrum Silver) 1 tab PO DAILY Tobacco use date assessed: 10/11/24 Fall risk assessment: No Falls in past year Last assessed Fall Risk: 10/11/24 Dental Screening Dental Screen Date: 10/11/24 Did you have a dental visit in the last 12 months?: Yes Did you have a dental problem in the last 6 months where you did not have access to dental care?: No Was dental information given to patient?: Patient has dentist HPI Cateract Surgery LT. EYE HPI Details Chief Complaint Pre-operative clearance for cataract surgery. [facility] 10/18/2024 and 11/29/2024 History - The patient is an 84-year-old female presenting for pre-operative evaluation for cataract surgery. Blood pressure was elevated during the clinic visit, but the patient states her home readings are typically lower, which have been regularly recorded. Ranging between 110 and 30 systolic - Management of hypertension is primarily through Lisinopril 30 mg, which the patient tolerates well. - The presence of a pacemaker is noted; patient has never required antibiotics for procedures related to this condition. 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 Reports will be sent along with this note Medications - Lisinopril 30 mg for management of Essential Hypertension - Silver Centrum supplement Problem List - Cataract - Essential Hypertension - Pacemaker status - Aj Syndrome Medical Decision Making The patient's clinical status was evaluated given her essential hypertension and upcoming cataract surgery. Blood pressure was carefully reviewed, with support for ongoing management with Lisinopril. Her current health status supports proceeding with surgery without additional antibiotic prophylaxis despite pacemaker presence. Patient is stable for cataract surgery [facility] Medical History Nephropathy Allergies Age related osteoporosis Hypertension, essential Surgical History History of hysterectomy Family History Father Parkinson disease Unknown family medical history Mother Dementia Sister Myeloma Social History Household Members Other:: Alone- single, no child Housing: Apartment Alcohol intake: current Alcohol intake frequency: holidays/special occasions only Patient Tobacco Use Status: Never used Tobacco e-Cigarette/Vaping Use: Never Used service: No Current occupational status: retired Cognitive needs: Yes Hearing needs: Yes Vision needs: Yes Questionnaire Thrive Questionnaire Date Thrive assessed: 10/11/24 AUDIT C Alcohol Use Questionnaire (AUDIT-C) 1. How often do you have a drink containing alcohol?: Never 3. How often do you have six or more drinks on one occasion?: Never Total Score: 0 Score Reviewed/Action Taken: Yes ADRIAN-7 AMB Questionnaire ADRIAN-7 Date ADRIAN - 7 assessed: 10/11/24 Feeling nervous, anxious, or on edge: 0 = Not at all Not being able to stop or control worryin = Not at all Worrying too much about different things: 0 = Not at all Trouble relaxin = Not at all Being so restless that it is hard to sit still: 0 = Not at all Becoming easily annoyed or irritable: 0 = Not at all Feeling afraid as if something awful might happen: 0 = Not at all Total ADRIAN-7 score (0-4 normal; 5-9 mild; 10-14 moderate; 15-21 severe): 0 Source: Developed by Drs. Phan Munroe, Avis Hitchcock, Alexi Mina and colleagues, with an educational serjio from [employer]. ADRIAN-7 Assessment Billing ADRIAN-7 Assessment Tool: ADRIAN-7 Assessment 77969 Review of Systems Const Denies chills and Denies fever(s) ENT Denies epistaxis and Denies nasal discharge Card Denies chest pain Resp Denies chest congestion, Denies cough and Denies hemoptysis GI Denies diarrhea and Denies nausea Skin/Breast Denies rash Neuro Reports no additional complaints Psych Reports no additional complaints Endo Reports no additional complaints Physical exam (Primary Care) Vital Signs: Last Vital Signs Temp 98.1 F 10/11/24 15:13 Pulse 85 10/11/24 15:13 Resp 16 10/11/24 15:13 BP 144/78 H 10/11/24 15:13 Pulse Ox 97 10/11/24 15:13 Oxygen Delivery Method Room Air 10/11/24 15:13 BMI result Body Mass Index 23.5 Tobacco/Smoking Status: Tobacco use Status Tobacco use date assessed 10/11/24 10/11/24 15:15 Patient Tobacco Use Status Never used Tobacco 10/11/24 15:15 e-Cigarette/Vaping Use Never Used 10/11/24 15:15 Thrive Assessment: Date of Thrive Assessment Date Thrive assessed 10/11/24 10/11/24 15:15 Const General: cooperative, comfortable and no acute distress Orientation/consciousness: patient oriented x3 HENMT Head: Yes normocephalic Eyes General: appearance normal, both eyes and all related structures Neck Neck: Yes supple Resp Effort & Inspection: normal respiratory effort, no cough and no stridor Cardio Rhythm: regular rhythm Heart sounds: S1 normal heart sound present and S2 normal heart sound present Skin General skin exam: turgor normal Neuro General: patient oriented x3, tone normal and moves all extremities Extrem Right lower extremity: no edema Left lower extremity: no edema Coding Level of Care Code Est Pt Level 4 (59960) Diagnoses Pre-op evaluation Z01.818 Other age-related cataract of both eyes H25.89 Cataract type: age-related Age-related cataract type: other Aj syndrome of left eye H50.812 Hypertension, essential I10 Age-related osteoporosis without current pathological fracture M81.0 Presence of current pathological fracture: without current pathological fracture Nephropathy N28.9 Additional Codes ADRIAN-7 Assessment Billing - ADRIAN-7 Assessment Tool: ADRIAN-7 Assessment 60192 ([id number]) Assessment & Plan Assessment & Plan (1) Pre-op evaluation: Code(s): Z01.818 - Encounter for other preprocedural examination Category: Medical (2) Cataract, bilateral: Code(s): H26.9 - Unspecified cataract Category: Medical Qualifiers: Cataract type: age-related Age-related cataract type: other Qualified Code(s): H25.89 - Other age-related cataract (3) Aj syndrome of left eye: Code(s): H50.812 - Aj's syndrome, left eye Category: Medical (4) Hypertension, essential: Code(s): I10 - Essential (primary) hypertension Category: Medical (5) Age related osteoporosis: Code(s): M81.0 - Age-related osteoporosis without current pathological fracture Category: Medical Qualifiers: Presence of current pathological fracture: without current pathological fracture Qualified Code(s): M81.0 - Age-related osteoporosis without current pathological fracture (6) Nephropathy: Code(s): N28.9 - Disorder of kidney and ureter, unspecified Category: Medical Plan Chief Complaint Pre-operative clearance for cataract surgery. [facility] 10/18/2024 and 11/29/2024 History - The patient is an 84-year-old female presenting for pre-operative evaluation for cataract surgery. Blood pressure was elevated during the clinic visit, but the patient states her home readings are typically lower, which have been regularly recorded. Ranging between 110 and 30 systolic - Management of hypertension is primarily through Lisinopril 30 mg, which the patient tolerates well. - The presence of a pacemaker is noted; patient has never required antibiotics for procedures related to this condition. 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 Reports will be sent along with this note Medications - Lisinopril 30 mg for management of Essential Hypertension - Silver Centrum supplement Problem List - Cataract - Essential Hypertension - Pacemaker status - Aj Syndrom - mild nephropathy - age related osteoporosis Medical Decision Making The patient's clinical status was evaluated given her essential hypertension and upcoming cataract surgery. Blood pressure was carefully reviewed, with support for ongoing management with Lisinopril. Her current health status supports proceeding with surgery without additional antibiotic prophylaxis despite pacemaker presence. Patient is stable for cataract surgery Orders: Orders Complete Blood Count Auto Diff 4 Months I10 - Essential (primary) hypertension, M81.0 - Age-related osteoporosis without current pathological fracture, N28.9 - Disorder of kidney and ureter, unspecified Comprehensive [place]. Panel Fast 4 Months I10 - Essential (primary) hypertension, M81.0 - Age-related osteoporosis without current pathological fracture, N28.9 - Disorder of kidney and ureter, unspecified Lipid Panel 4 Months I10 - Essential (primary) hypertension, M81.0 - Age-related osteoporosis without current pathological fracture, N28.9 - Disorder of kidney and ureter, unspecified
--- OUTSIDE RECORDS SUMMARY | 2024-10-11 17:58 | XMS_ITS | Patient Health Record ---
[facility] Address [address] [place] [address] Care Team Providers Care Custody Officer Name Role Phone Gilberto SIMON, [facility] Primary Care Provider Levon Yi Unavailable [phone] Allergies Allergen (clinical drug ingredient) Drug/Non Drug [...] W/U Status Risk Notes Problem Tinea unguium (351890853) Tinea unguium (B35.1) Active confirmed Problem Ingrowing nail (524860019) Ingrowing nail (L60.0) Active confirmed Plan Of Treatment Pending Test Test Name Order Date [id number] Plate 04/15/2021 [id number] Plate 12/09/2021 Insurance Providers Payer Name Payer Address Payer Phone Subscriber Number Group Number Insured Name Patient Relationship to Insured Coverage Start Date Coverage End Date [employer] ([facility] [address] [place] [address] [id number] [facility] Rehana Leavitt Self - patient is the insured Medical (General) History Medical History History ICD Code Broken bones Cataracts Hiatal hernia High blood pressure Macular degeneration Osteoporosis chronic sinusitis Chicken pox Measles Mumps Surgical History Surgery Date(Month/Year) tonsillectomy 1950 partial hysterectomy 10/20/78 hysterectomy, total 10/28/81 elbow sx 05/08/13
== END 2024-10-11 15:36 | disposition home or self-care (01) ==
LOC: HO.HMCC 15:13
PROVIDERS: PCP Internal Medicine; Visit Provider Internal Medicine
DX: Z01.818 Encounter for other preprocedural examination (principal); H25.89 Other age-related cataract; H50.812 Duane's syndrome, left eye; I10 Essential (primary) hypertension; M81.0 Age-related osteoporosis without current pathological fracture; N28.9 Disorder of kidney and ureter, unspecified

== ENCOUNTER → 2024-10-11 15:12 | Outpatient (BNVA) | payer OTHER, SELFPAY | PROVIDERS: PCP Internal Medicine; Visit Provider Internal Medicine | DX: Z01.818 Encounter for other preprocedural examination (principal); H25.89 Other age-related cataract; H50.812 Duane's syndrome, left eye; I10 Essential (primary) hypertension; M81.0 Age-related osteoporosis without current pathological fracture; N28.9 Disorder of kidney and ureter, unspecified | CPT/HCPCS: 96127 ==

== ENCOUNTER 2025-03-01 15:25 | Outpatient (REF) | payer OTHER, SELFPAY ==
--- OUTSIDE RECORDS SUMMARY | 2025-03-01 15:29 | XMS_ITS | Patient Health Record ---
[facility] Address [address] [place] [address] Care Team Providers Care Microbiology Instructor Name Role Phone [facility]to [facility], [facility] Primary [facility] Provider Levon Yi Unavailable [phone] Allergies Allergen (clinical drug ingredient) Drug/Non Drug [...] 30 MG 1 tablet Orally Once a day; Duration: 30 day(s) 04/11/2021 Active Immunizations Vaccine Route [...] W/U Status Risk Notes Problem Tinea unguium (612690961) Tinea unguium (B35.1) Active confirmed Problem Ingrowing nail (493230348) Ingrowing nail (L60.0) Active confirmed Plan Of Treatment Pending Test Test Name Order Date [id number] Plate 04/15/2021 [id number] Plate 12/09/2021 Insurance Providers Payer Name Payer Address Payer Phone Subscriber Number Group Number Insured Name Patient Relationship to Insured Coverage Start Date Coverage End Date [employer] ([facility] [address] [place] [address] [phone] [id number] [facility] Rehana Leavitt Self - patient is the insured Medical (General) History Medical History History ICD Code Broken bones Cataracts Hiatal hernia High blood pressure Macular degeneration Osteoporosis chronic sinusitis Chicken pox Measles Mumps Surgical History Surgery Date(Month/Year) tonsillectomy 1950 partial hysterectomy 10/20/78 hysterectomy, total 10/28/81 elbow sx 05/08/13
== END 2025-03-01 15:26 | disposition home or self-care (01) ==
LOC: HO.MAMMO 15:25
PROVIDERS: PCP Internal Medicine; Visit Provider Internal Medicine
DX: Z12.31 Encounter for screening mammogram for malignant neoplasm of breast (principal)
CPT/HCPCS: 77063; 77067

== ENCOUNTER → 2025-03-01 15:45 | Outpatient (BNV) | payer OTHER, SELFPAY | PROVIDERS: PCP Internal Medicine; Visit Provider Internal Medicine | DX: Z12.31 Encounter for screening mammogram for malignant neoplasm of breast (principal) | CPT/HCPCS: 77063; 77067 ==

== ENCOUNTER 2025-03-02 09:43 | Outpatient (REF) | payer OTHER, SELFPAY ==
--- OUTSIDE RECORDS SUMMARY | 2025-03-02 09:53 | XMS_ITS | Patient Health Record ---
[facility] Address [address] [place] [address] Care Team Providers Care Building Illuminating Engineer Name Role Phone [facility]to [facility], [facility] Primary Care Provider Levon Yi Unavailable [phone] Allergies Allergen (clinical drug ingredient) Drug/Non Drug [...] W/U Status Risk Notes Problem Tinea unguium (261707664) Tinea unguium (B35.1) Active confirmed Problem Ingrowing nail (607549942) Ingrowing nail (L60.0) Active confirmed Plan Of Treatment Pending Test Test Name Order Date [id number] Plate 04/15/2021 [id number] Plate 12/09/2021 Insurance Providers Payer Name Payer Address Payer Phone Subscriber Number Group Number Insured Name Patient Relationship to Insured Coverage Start Date Coverage End Date [place] ([facility] [address] [place] [address] [phone] [id number] [facility] Rehana Leavitt Self - patient is the insured Medical (General) History Medical History History ICD Code Broken bones Cataracts Hiatal hernia High blood pressure Macular degeneration Osteoporosis chronic sinusitis Chicken pox Measles Mumps Surgical History Surgery Date(Month/Year) tonsillectomy 1950 partial hysterectomy 10/20/78 hysterectomy, total 10/28/81 elbow sx 05/08/13
[2025-03-02 14:26] LABS: MANUAL DIFF FLAG NO
[2025-03-02 14:33] LABS: Hematocrit 37.3 % (37.0-47.0); Hemoglobin 12.4 g/dl (12.0-16.0); Imm Gran Abs Auto 0.02 X10*3/uL (0.00-0.03); Imm Gran Pct Auto 0.3 % (0.0-0.4); Lymphocytes Absolute Auto 1.0 X10*3/uL (1.2-4.9); Mean Corpuscular HGB Conc 33.2 g/dl (31.0-35.0); Mean Corpuscular Hemoglobin 30.1 pg (27.0-33.0); Mean Corpuscular Volume 90.5 fL (80.0-98.0); NRBC Abs Auto 0.000 X10*3/uL (0.0-0.012); NRBC Pct Auto 0.0 /100WBC (0.0-0.2); Platelet Count 272 X10*3/uL (160-400); Red Blood Count 4.12 X10*6/uL (4.20-5.50); White Blood Count 6.7 X10*3/uL (4.8-10.8)
[2025-03-02 14:54] LABS: Alanine Aminotransferase 24 U/L (0-31); Albumin Level 4.2 g/dL (3.5-5.0); Alkaline Phosphatase 70 U/L (39-117); Anion Gap 11 (12-20); Aspartate Amino Transferase 30 U/L (5-31); Blood Urea Nitrogen 14 mg/dL (9-16); Calcium 10.5 mg/dL (8.4-10.2); Carbon Dioxide 28 mmol/L (22-29); Chloride 106 mmol/L (96-108); Cholesterol 164 mg/dL (<200); Estimated Glomerular Filt Rate 45; HDL Cholesterol 60 mg/dL (>40); Potassium 4.8 mmol/L (3.3-5.1); Sodium 140 mmol/L (135-145); Total Protein 7.0 g/dL (6.5-8.0); Triglycerides 71 mg/dL (<150)
== END 2025-03-02 09:44 | disposition home or self-care (01) ==
LOC: HO.HMGCLDS 09:43
PROVIDERS: PCP Internal Medicine; Visit Provider Internal Medicine
DX: I10 Essential (primary) hypertension (principal); M81.0 Age-related osteoporosis without current pathological fracture; N28.9 Disorder of kidney and ureter, unspecified
CPT/HCPCS: 36415; 80053; 80061; 85025

== ENCOUNTER 2025-03-06 12:59 | Outpatient (AMB) | payer OTHER, SELFPAY ==
[2025-03-06 13:24] VITALS: BP 128/72; PULSE 82; TEMP 36.7; O2SAT 95; BMI 22.8
--- NOTE | 2025-03-06 13:24 | AM.OFFWIN_ITS ---
Intake Vital Signs 03/06/25 13:24 Height 5 ft 4 in Weight 133 lb BMI 22.8 BP 128/72 Blood Pressure Location Lt brachial Position Sitting Pulse 82 Pulse Source Pulse Oximeter Temp 98.1 F Temp Source Oral Pulse Oximetry (%) 95 Oxygen Delivery Method Room Air Intake Visit Reasons: EP-sinus congestion Intake Note: presets with sinus congestion and drainage, cough and chest congestion for about 6 days Patient Tobacco Use Status: Never used Tobacco Allergies atenolol Adverse Reaction (Intermediate, Verified 03/06/25 13:26) Fatigued peanut butter / red wine Allergy (Unknown, Uncoded 09/05/24 11:35) unknown Do you need a note to return to daycare/school/sports/work: No HPI HPI Comments History of Present Illness Details History - The patient is an 84-year-old female p resenting with sinus drainage and congestion. - Reports sinus drainage since Wednesday , with difficulty sleeping due to congestion. - Lifelong history of sinus problems, cu rrently experiencing milky white phlegm. - She has a constant runny nose and has pressure in the ears. - She does have pressure in the frontal and maxillary sinuses. - Concerned about progression to bronchi tis, which she has had previously. - No chest pain or shortness of breath r eported. - Under stress due to brother's recent s urgery and illness. - She denies fever, chills, CP, SOB, abd pain, n/v/d, or sick contacts. Physical Exam General: Cooperative, healthy appearing, comfortable and no acute distress Orientation/consciousness: Patient oriented x3 Limitations: No limitations Head: Normal to inspection Ears: Hearing grossly normal bilaterally, external ears normal and TM's normal bilaterally, some wax present Nose: Normal external nose present, normal nares present, and no nasal discharge present. Face and sinus: Sinuses tender to palpation. Mouth: Normal oral and palatal mucosa present and moist mucous membranes noted. Throat: Tonsils normal. Uvula is midline. Posterior oropharynx with erythema and no exudates. Neck: Normal visual inspection, full ROM. No lymphadenopathy noted. Respiratory: Clear to auscultation bilaterally. Normal respiratory effort, able to speak in complete sentences. No respiratory distress, not tachypneic, no tripod positioning and no use of accessory muscles. Cardiovascular: Regular rate and rhythm. Normal S1 and S2 Skin: No rashes or lesions noted Patient was informed and verbally consented to the use of an ambient scribe for clinic note documentation during this visit [facility] Medical History Nephropathy Allergies Age related osteoporosis Hypertension, essential Surgical History History of hysterectomy Family History Father Parkinson disease Unknown family medical history Mother Dementia Sister Myeloma Social History Household Members Other:: Alone- single, no child Housing: Apartment Alcohol intake: current Alcohol intake frequency: holidays/special occasions only Patient Tobacco Use Status: Never used Tobacco e-Cigarette/Vaping Use: Never Used service: No Current occupational status: retired Cognitive needs: Yes Hearing needs: Yes Vision needs: Yes Review of Systems Const All systems reviewed & are unremarkable except as noted in HPI and below Physical Exam Vital Signs: Last Vital Signs Temp 98.1 F 03/06/25 13:24 Pulse 82 03/06/25 13:24 BP 128/72 03/06/25 13:24 Pulse Ox 95 03/06/25 13:24 Oxygen Delivery Method Room Air 03/06/25 13:24 BMI result Body Mass Index 22.8 Assessment & Plan Assessment & Plan (1) Sinus congestion: Code(s): R09.81 - Nasal congestion Plan Most likely allergic rhinitis vs URI vs sinusitis Plan - Prescribe an antihistamine with decongestant and a nasal spray. - Monitor symptoms for progression to infection, particularly after seven days of symptom onset. - Advise on the use of medications to manage allergic rhinitis symptoms. - VSS, pt well appearing - tylenol as needed for pain or fever Medications: New cetirizine-pseudoephedrine 5-120 mg ER 1 tab PO BID 14 tabs 0RF 7 days fluticasone propionate 50 mcg/actuation administer into each nostril 1 spray intranasal Q12H 16 grams 0RF Coding Level of Care Code Est Pt Level 3 (10811) Diagnoses Sinus congestion R09.81
--- OUTSIDE RECORDS SUMMARY | 2025-03-06 13:36 | XMS_ITS | Patient Health Record ---
[facility] Organization [facility] Address [address] [place] [address] Care Team Providers Care Babbitter Name Role Phone [facility], [facility] Primary Care Provider Levon Yi Unavailable [phone] Allergies Allergen (clinical drug ingredient) Drug/Non Drug [...] W/U Status Risk Notes Problem Tinea unguium (B35.1) Active confirmed Problem Ingrowing nail (214786526) Ingrowing nail (L60.0) Active confirmed Plan Of Treatment Pending Test Test Name Order Date [id number] Plate 04/15/2021 [id number] Plate 12/09/2021 Insurance Providers Payer Name Payer Address Payer Phone Subscriber Number Group Number Insured Name Patient Relationship to Insured Coverage Start Date Coverage End Date [employer] ([facility]) [address] [place] [address] [id number] Rehana Leavitt Self - patient is the insured Medical (General) History Medical History History ICD Code Broken bones Cataracts Hiatal hernia High blood pressure Macular degeneration Osteoporosis chronic sinusitis Chicken pox Measles Mumps Surgical History Surgery Date(Month/Year) tonsillectomy 1950 partial hysterectomy 10/20/78 hysterectomy, total 10/28/81 elbow sx 05/08/13
== END 2025-03-06 14:20 | disposition home or self-care (01) ==
PROVIDERS: PCP Internal Medicine; Visit Provider Physician Assistant Medical
DX: R09.81 Nasal congestion (principal)

== ENCOUNTER 2025-03-13 09:45 | Outpatient (AMB) | payer OTHER, SELFPAY ==
[2025-03-13 09:46] VITALS: BP 140/80; PULSE 83; TEMP 37.3; O2SAT 98; BMI 22.8
--- NOTE | 2025-03-13 09:46 | A.OFFPC_ITS ---
Vital Signs 03/13/25 09:46 Height 5 ft 4 in Weight 133 lb BMI 22.8 BP 140/80 H Blood Pressure Location Lt brachial Position Sitting Pulse 83 Pulse Source Pulse Oximeter Temp 99.1 F Temp Source Oral Pulse Oximetry (%) 98 Intake Visit Reasons: 5m f/u Allergies atenolol Adverse Reaction (Intermediate, Verified 03/13/25 09:46) Fatigued peanut butter / red wine Allergy (Unknown, Uncoded 09/05/24 11:35) unknown Medication List - Last Reconciled 03/13/25 by Nicko Macias MD lisinopril 30 mg PO DAILY 90 days pusgkwtb-zjo-uqqlz acid-lutein 400-250 mcg (Centrum Silver) 1 tab PO DAILY Tobacco use date assessed: 10/11/24 Fall risk assessment: No Falls in past year Last assessed Fall Risk: 03/13/25 Dental Screening Dental Screen Date: 10/11/24 HPI 5m f/u HPI Details Chief Complaint Persistent sinus drainage despite previous treatment attempts. History of Present Illness The patient is an 84-year-old female presenting with persistent sinus drainage. Sinusitis: - The patient reports symptoms of sinus drainage since March 06. - The condition manifested as a constant drip down the back of the throat. - Initially treated with lhgi-vuf-vpxvov r Sudafed, which was later substituted by Angelica due to insurance issues and hypertension - Symptoms include milky white mucus wit hout associated sore throat, but congestion is noted. - No fever, chills, or chest pain report ed. - Improvement noted; mucus production is reducing, but the progress is slow. Medical History: - Sinusitis - Hypertension Medications: - Angelica (substituted for Sudafed) for sinus drainage - Antihypertensive medication lisinopril 30 mg Social History: - The patient is involved in taking care of her brother, who recently had surgery. - Responsibilities include managing his dogs and staying overnight, affecting her recovery. - Concerns about blood pressure variabil ity reported due to illness and possibly recent stress. Problem List - Sinusitis - Hypertension Patient Instructions - Continue taking Angelica. - Consider taking Mucinex. - Ensure adequate rest despite caregivin g duties. - Schedule a follow-up appointment in tw o weeks to monitor symptoms and blood pressure. Review of Systems - Cardiac: Denies chest pain. - General: No fever no chills - Neurological: No headaches no dizziness - Ear nose throat: No sore throat no hearing difficulty no ear pain - Cardiovascular: No syncope, no chest pain, no palpitations - Gastrointestinal: No nausea vomiting or diarrhea Physical Exam General: No acute distress HEENT: Sinusitis with post-nasal drip, milky white mucus, mild sinus discomfort maxillary Neck: Supple Respiratory system: Able to talk in full sentences, no audible wheeze, some congestion noted Cardiovascular: S1-S2 regular in rate and rhythm Gastrointestinal: No pain Extremities: No new findings LEAD DENTAL ASSISTANT: Alert awake oriented x3 motor sensory intact Skin: Normal turgor [facility] Medical History Nephropathy Allergies Age related osteoporosis Hypertension, essential Surgical History History of hysterectomy Family History Father Parkinson disease Unknown family medical history Mother Dementia Sister Myeloma Social History Household Members Other:: Alone- single, no child Housing: Apartment Alcohol intake: current Alcohol intake frequency: holidays/special occasions only Patient Tobacco Use Status: Never used Tobacco e-Cigarette/Vaping Use: Never Used service: No Current occupational status: retired Cognitive needs: Yes Hearing needs: Yes Vision needs: Yes Questionnaire PHQ-9 Over the last 2 weeks, how often have you been bothered by any of the following problems? 27709 - PHQ-9 Billing: Patient declined-do not bill Source: Developed by Drs. Phan Munroe, Avis Hitchcock, Alexi Mina and colleagues, with an educational serjio from [employer]. Thrive Questionnaire Date Thrive assessed: 03/13/25 I am a: Patient What is your living situation today?: I choose not to answer this question Within the past 12 months, did the food you bought not last and you didn't have the money to get more?: I choose not to answer this question Within the past 12 months, did you worry whether your food would run out before you got money to buy more?: I choose not to answer this question Do you have trouble paying for medicines?: I choose not to answer this question Do you have trouble getting transportation to medical appointments?: I choose not to answer this question Do you have trouble paying your heating and electricity bill?: I choose not to answer this question Do you have trouble taking care of your child, family member or friend?: I choose not to answer this question Do you have trouble with day-to-day activities such as bathing, preparing meals, shopping, managing finances, etc.?: I choose not to answer this question Are you currently unemployed and looking for a job?: I choose not to answer this question Are you interested in more education?: I choose not to answer this question Please select the resources that you would like help with: None Currently or been in a relationship where the following occur: I choose not to answer THRIVE Score: 0 AUDIT C Alcohol Use Questionnaire (AUDIT-C) 1. How often do you have a drink containing alcohol?: Never 3. How often do you have six or more drinks on one occasion?: Never Total Score: 0 Score Reviewed/Action Taken: Yes ADRIAN-7 AMB Questionnaire ADRIAN-7 Date ADRIAN - 7 assessed: 10/11/24 Feeling nervous, anxious, or on edge: 0 = Not at all Not being able to stop or control worryin = Not at all Worrying too much about different things: 0 = Not at all Trouble relaxin = Not at all Being so restless that it is hard to sit still: 0 = Not at all Becoming easily annoyed or irritable: 0 = Not at all Feeling afraid as if something awful might happen: 0 = Not at all Total ADRIAN-7 score (0-4 normal; 5-9 mild; 10-14 moderate; 15-21 severe): 0 Source: Developed by Drs. Phan Munroe, Avis Hitchcock, Alexi Mina and colleagues, with an educational serjio from [employer]. ADRIAN-7 Assessment Billing ADRIAN-7 Assessment Tool: ADRIAN-7 Assessment 17280 Physical exam (Primary Care) Vital Signs: Last Vital Signs Temp 99.1 F 03/13/25 09:46 Pulse 83 03/13/25 09:46 BP 140/80 H 03/13/25 09:46 Pulse Ox 98 03/13/25 09:46 BMI result Body Mass Index 22.8 Tobacco/Smoking Status: Tobacco use Status Tobacco use date assessed 10/11/24 03/13/25 09:49 Patient Tobacco Use Status Never used Tobacco 03/13/25 09:49 e-Cigarette/Vaping Use Never Used 03/13/25 09:49 Thrive Assessment: Date of Thrive Assessment Date Thrive assessed 03/13/25 03/13/25 09:49 Currently or been in a relationship where the following occur: I choose not to answer Coding Level of Care Code Est Pt Level 3 (23003) Diagnoses Acute non-recurrent maxillary sinusitis J01.00 Recurrence: non-recurrent Additional Codes ADRIAN-7 Assessment Billing - ADRIAN-7 Assessment Tool: ADRIAN-7 Assessment 76166 ([id number]) Assessment & Plan Assessment & Plan (1) Acute maxillary sinusitis: Code(s): J01.00 - Acute maxillary sinusitis, unspecified Category: Medical Qualifiers: Recurrence: non-recurrent Qualified Code(s): J01.00 - Acute maxillary sinusitis, unspecified Plan Chief Complaint Persistent sinus drainage despite previous treatment attempts. History of Present Illness The patient is an 84-year-old female presenting with persistent sinus drainage. Sinusitis: - The patient reports symptoms of sinus drainage since March 06. - The condition manifested as a constant drip down the back of the throat. - Initially treated with blig-tsm-cqvybte Sudafed, which was later substituted by Angelica due to insurance issues and hypertension - Symptoms include milky white mucus without associated sore throat, but congestion is noted. - No fever, chills, or chest pain reported. - Improvement noted; mucus production is reducing, but the progress is slow. Medical History: - Sinusitis - Hypertension Medications: - Angelica (substituted for Sudafed) for sinus drainage - Antihypertensive medication lisinopril 30 mg Social History: - The patient is involved in taking care of her brother, who recently had surgery. - Responsibilities include managing his dogs and staying overnight, affecting her recovery. - Concerns about blood pressure variability reported due to illness and possibly recent stress. Problem List - Sinusitis - Hypertension Patient Instructions - Continue taking Angelica. - Consider taking Mucinex. - Ensure adequate rest despite caregiving duties. - Schedule a follow-up appointment in two weeks to monitor symptoms and blood pressure.
--- OUTSIDE RECORDS SUMMARY | 2025-03-13 10:30 | XMS_ITS | Patient Health Record ---
[facility] Address [address] [place] [address] Care Team Providers Care Restaurant General Manager Name Role Phone Gilberto SIMON, [facility] Primary Care Provider Levon Yi Unavailable [phone] Allergies Allergen (clinical drug ingredient) Drug/Non Drug [...] W/U Status Risk Notes Problem Tinea unguium (256343642) Tinea unguium (B35.1) Active confirmed Problem Ingrowing nail (957596950) Ingrowing nail (L60.0) Active confirmed Plan Of Treatment Pending Test Test Name Order Date [id number] Plate 04/15/2021 [id number] Plate 12/09/2021 Insurance Providers Payer Name Payer Address Payer Phone Subscriber Number Group Number Insured Name Patient Relationship to Insured Coverage Start Date Coverage End Date [employer] ([facility]) [address] [place] [address] [id number] [facility] Rehana Leavitt Self - patient is the insured Medical (General) History Medical History History ICD Code Broken bones Cataracts Hiatal hernia High blood pressure Macular degeneration Osteoporosis chronic sinusitis Chicken pox Measles Mumps Surgical History Surgery Date(Month/Year) tonsillectomy 1950 partial hysterectomy 10/20/78 hysterectomy, total 10/28/81 elbow sx 05/08/13
== END 2025-03-13 10:04 | disposition home or self-care (01) ==
PROVIDERS: PCP Internal Medicine; Visit Provider Internal Medicine
DX: J01.00 Acute maxillary sinusitis, unspecified (principal)

== ENCOUNTER → 2025-03-13 09:45 | Outpatient (BNVA) | payer OTHER, SELFPAY | PROVIDERS: PCP Internal Medicine; Visit Provider Internal Medicine | DX: M81.0 Age-related osteoporosis without current pathological fracture (principal); J01.00 Acute maxillary sinusitis, unspecified | CPT/HCPCS: 96127 ==

== ENCOUNTER 2025-03-27 13:06 | Outpatient (AMB) | payer OTHER, SELFPAY ==
[2025-03-27 13:12] VITALS: BP 138/80; PULSE 82; TEMP 36.8; O2SAT 97; BMI 22.7
--- NOTE | 2025-03-27 13:12 | A.OFFPC_ITS ---
Vital Signs 03/27/25 13:12 Height 5 ft 4 in Weight 132 lb BMI 22.7 BP 138/80 Blood Pressure Location Lt brachial Position Sitting Pulse 82 Pulse Source Pulse Oximeter Temp 98.3 F Temp Source Oral Pulse Oximetry (%) 97 Intake Visit Reasons: 2 week follow up Allergies atenolol Adverse Reaction (Intermediate, Verified 03/27/25 13:12) Fatigued peanut butter / red wine Allergy (Unknown, Uncoded 09/05/24 11:35) unknown Medication List - Last Reconciled 03/27/25 by Nicko Macias MD lisinopril 30 mg PO DAILY 90 days qialgyqp-vup-ijnwe acid-lutein 400-250 mcg (Centrum Silver) 1 tab PO DAILY Tobacco use date assessed: 10/11/24 Fall risk assessment: No Falls in past year Last assessed Fall Risk: 03/13/25 Dental Screening Dental Screen Date: 10/11/24 HPI 2 week follow up HPI Details Chief Complaint The patient reports residual fluid in the ear with previous congestion. History of Present Illness The patient is an 84 year old female presenting with ear congestion and fluid retention. Ear Congestion: - Symptoms began with previous congestio n and persistent ear fluid noted. - The patient reports minimal hearing ab ility in the affected ear. She already wear hearing aid - Denies ear pain or coughing, but menti ons presence of phlegm. Hypertension: - Long history of elevated blood pressur e. - Currently taking lisinopril 30 mg. - Reports blood pressure readings are lo wer at home compared to clinic readings. - Patient experiences fatigue possibly l inked to medication timing, currently taken in the morning instead of night. Renal Function: - Recently completed blood tests indicat ed slightly compromised kidney function. GFR of 45 - No significant electrolyte disturbance s noted. - A suggestion to monitor with further b lood tests due to possible association with prolonged hypertension. Mammography Results: - Recently completed mammogram showed no abnormalities. Medical History: - Essential hypertension - Chronic kidney disease, stage unspecif ied Medications: - Lisinopril 30 mg for hypertension Problem List - Residual ear fluid - Essential Hypertension - Chronic kidney disease Patient Instructions - Continue taking lisinopril but switch to nighttime dosing to address fatigue. - No further medications necessary for t he ear fluid as it is expected to resolve naturally. - Push fluids to assist kidney function and repeat blood test within one to two months. - Blood test does not require fasting; c an be done as a walk-in appointment. - Follow-up visit in three months to dis cuss blood test results. Review of Systems - General: No fever no chills - Neurological: No headaches no dizziness - Ear nose throat: No sore throat no hearing difficulty no ear pain - Cardiovascular: No syncope, no chest pain, no palpitations - Gastrointestinal: No nausea vomiting or diarrhea Physical Exam General: No acute distress HEENT: No acute findings, slight fluid in the ear right, no inflammation or infection Neck: Supple Respiratory system: Able to talk in full sentences, no audible wheeze, no cough Cardiovascular: S1-S2 regular in rate and rhythm Gastrointestinal: No pain Extremities: No new findings POWER SEWING MACHINE OPERATOR: Alert awake oriented x3 motor sensory intact Skin: Normal turgor PFSH Medical History Nephropathy Allergies Age related osteoporosis Hypertension, essential Surgical History History of hysterectomy Family History Father Parkinson disease Unknown family medical history Mother Dementia Sister Myeloma Social History Household Members Other:: Alone- single, no child Housing: Apartment Alcohol intake: current Alcohol intake frequency: holidays/special occasions only Patient Tobacco Use Status: Never used Tobacco e-Cigarette/Vaping Use: Never Used service: No Current occupational status: retired Cognitive needs: Yes Hearing needs: Yes Vision needs: Yes Questionnaire Thrive Questionnaire Date Thrive assessed: 10/11/24 ADRIAN-7 AMB Questionnaire ADRIAN-7 Date ADRIAN - 7 assessed: 10/11/24 Source: Developed by Drs. Phan Munroe, Avis Hitchcock, Alexi Mina and colleagues, with an educational serjio from [employer]. Physical exam (Primary Care) Vital Signs: Last Vital Signs Temp 98.3 F 03/27/25 13:12 Pulse 82 03/27/25 13:12 BP 138/80 03/27/25 13:12 Pulse Ox 97 03/27/25 13:12 BMI result Body Mass Index 22.7 Tobacco/Smoking Status: Tobacco use Status Tobacco use date assessed 10/11/24 03/27/25 13:15 Patient Tobacco Use Status Never used Tobacco 03/27/25 13:15 e-Cigarette/Vaping Use Never Used 03/27/25 13:15 Thrive Assessment: Date of Thrive Assessment Date Thrive assessed 10/11/24 03/27/25 13:15 Coding Level of Care Code Est Pt Level 3 (93789) Diagnoses Decreased GFR R94.4 Hypertension, essential I10 Hearing difficulty of right ear H91.91 Assessment & Plan Assessment & Plan (1) Decreased GFR: Code(s): R94.4 - Abnormal results of kidney function studies Category: Medical (2) Hypertension, essential: Code(s): I10 - Essential (primary) hypertension Category: Medical (3) Hearing difficulty of right ear: Code(s): H91.91 - Unspecified hearing loss, right ear Category: Medical Plan Chief Complaint The patient reports residual fluid in the ear with previous congestion. History of Present Illness The patient is an 84 year old female presenting with ear congestion and fluid retention. Ear Congestion: - Symptoms began with previous congestion and persistent ear fluid noted. - The patient reports minimal hearing ability in the affected ear. She already wear hearing aid - Denies ear pain or coughing, but mentions presence of phlegm. Hypertension: - Long history of elevated blood pressure. - Currently taking lisinopril 30 mg. - Reports blood pressure readings are lower at home compared to clinic readings. - Patient experiences fatigue possibly linked to medication timing, currently taken in the morning instead of night. Renal Function: - Recently completed blood tests indicated slightly compromised kidney function. GFR of 45 - No significant electrolyte disturbances noted. - A suggestion to monitor with further blood tests due to possible association with prolonged hypertension. Mammography Results: - Recently completed mammogram showed no abnormalities. Medical History: - Essential hypertension - Chronic kidney disease, stage unspecified Medications: - Lisinopril 30 mg for hypertension Problem List - Residual ear fluid - Essential Hypertension - Chronic kidney disease Patient Instructions - Continue taking lisinopril but switch to nighttime dosing to address fatigue. - No further medications necessary for the ear fluid as it is expected to resolve naturally. - Push fluids to assist kidney function and repeat blood test within one to two months. - Blood test does not require fasting; can be done as a walk-in appointment. - Follow-up visit in three months to discuss blood test results. Orders: Orders Basic Metabolic Panel Today R94.4 - Abnormal results of kidney function studies
--- OUTSIDE RECORDS SUMMARY | 2025-03-27 13:51 | XMS_ITS | Patient Health Record ---
[facility] Address [address] [place] [address] Care Team Providers Care Insurance Clerk Name Role Phone Gilberto SIMON, [facility] Primary [facility] Provider Levon Yi Unavailable [phone] Allergies Allergen (clinical drug ingredient) Drug/Non Drug [...] unguium (B35.1) Active confirmed Problem Ingrowing nail (058827956) Ingrowing nail (L60.0) Active confirmed Plan Of Treatment Pending Test Test Name Order Date [id number] Plate 04/15/2021 [id number] Plate 12/09/2021 Insurance Providers Payer Name Payer Address Payer Phone Subscriber Number Group Number Insured Name Patient Relationship to Insured Coverage Start Date Coverage End Date [employer] ([facility]) [address] [place] [address] [id number] Rehana Leavitt Self - patient is the insured Medical (General) History Medical History History ICD Code Broken bones Cataracts Hiatal hernia High blood pressure Macular degeneration Osteoporosis chronic sinusitis Chicken pox Measles Mumps Surgical History Surgery Date(Month/Year) tonsillectomy 1950 partial hysterectomy 10/20/78 hysterectomy, total 10/28/81 elbow sx 05/08/13
== END 2025-03-27 13:41 | disposition home or self-care (01) ==
LOC: HO.HMCC 13:06
PROVIDERS: PCP Internal Medicine; Visit Provider Internal Medicine
DX: R94.4 Abnormal results of kidney function studies (principal); I10 Essential (primary) hypertension; H91.91 Unspecified hearing loss, right ear

== ENCOUNTER 2025-06-05 10:56 | Outpatient (REF) | payer OTHER, SELFPAY ==
--- OUTSIDE RECORDS SUMMARY | 2025-06-05 13:18 | XMS_ITS | Patient Health Record ---
Author Organization [facility] Address [address] [place] [address] Care Team Providers Care Civil Engineering Specialist Name Role Phone Gilberto SIM[facility], [facility] Primary [facility] Provider Levon Yi Unavailable [phone] Allergies Allergen (clinical drug ingredient) Drug/Non Drug [...] W/U Status Risk Notes Problem Tinea unguium (177845647) Tinea unguium (B35.1) Active confirmed Problem Ingrowing nail (162278345) Ingrowing nail (L60.0) Active confirmed Plan Of Treatment Pending Test Test Name Order Date [id number] Plate 04/15/2021 [id number] Plate 12/09/2021 Insurance Providers Payer Name Payer Address Payer Phone Subscriber Number Group Number Insured Name Patient Relationship to Insured Coverage Start Date Coverage End Date [employer] ([facility]) [address] [place] [address] [id number] [facility] Rehana Leavitt Self - patient is the insured Medical (General) History Medical History History ICD Code Broken bones Cataracts Hiatal hernia High blood pressure Macular degeneration Osteoporosis chronic sinusitis Chicken pox Measles Mumps Surgical History Surgery Date(Month/Year) tonsillectomy 1950 partial hysterectomy 10/20/78 hysterectomy, total 10/28/81 elbow sx 05/08/13
[2025-06-05 13:34] LABS: Anion Gap 10 (12-20); Blood Urea Nitrogen 20 mg/dL (9-16); Calcium 10.8 mg/dL (8.4-10.2); Carbon Dioxide 29 mmol/L (22-29); Chloride 105 mmol/L (96-108); Estimated Glomerular Filt Rate 53; Potassium 4.5 mmol/L (3.3-5.1); Sodium 139 mmol/L (135-145)
== END 2025-06-05 10:57 | disposition home or self-care (01) ==
LOC: HO.HMGCLDS 10:56
PROVIDERS: PCP Internal Medicine; Visit Provider Internal Medicine
DX: R94.4 Abnormal results of kidney function studies (principal)
CPT/HCPCS: 36415; 80048

== ENCOUNTER 2025-06-19 11:30 | Outpatient (AMB) | payer OTHER, SELFPAY ==
[2025-06-19 11:44] VITALS: BP 148/90; PULSE 80; O2SAT 99; BMI 23.0
--- NOTE | 2025-06-19 11:44 | A.OFFPC_ITS ---
Vital Signs 06/19/25 11:44 06/19/25 11:54 Height 5 ft 4 in Weight 134 lb BMI 23.0 BP 148/90 H 139/89 Blood Pressure Location Lt brachial Position Sitting BP not taken reason Patient Refused Pulse 80 Pulse Source Pulse Oximeter Pulse Oximetry (%) 99 Oxygen Delivery Method Room Air Intake Visit Reasons: 3 month follow up [place] Required: No Accompanied by: Self / Same As Patient Allergies atenolol Adverse Reaction (Intermediate, Verified 06/19/25 11:45) Fatigued peanut butter / red wine Allergy (Unknown, Uncoded 06/19/25 11:45) unknown Medication List - Last Reconciled 06/19/25 by Nicko Macias MD lisinopril 30 mg PO DAILY 90 days yllbpjyi-fyu-hmmpb acid-lutein 400-250 mcg (Centrum Silver) 1 tab PO DAILY Tobacco use date assessed: 06/19/25 Fall risk assessment: No Falls in past year Last assessed Fall Risk: 06/19/25 Dental Screening Dental Screen Date: 06/19/25 Did you have a dental visit in the last 12 months?: Yes Did you have a dental problem in the last 6 months where you did not have access to dental care?: No Was dental information given to patient?: Patient has dentist HPI 3 month follow up HPI Details History of Present Illness The patient is an 84-year-old female presenting for a follow-up visit to review lab results and manage chronic conditions. Hypercalcemia: - The patient has an elevated calcium le valerio noted on labs from March. - Potential causes discussed include hyp erparathyroidism or compromised kidney function. - The patient was referred to an endocri nologist years ago for this issue but did not follow up. - The patient reports a high intake of d airy products. Chronic Kidney Disease: - The patient has compromised kidney fun ction, and her GFR was 53 on recent labs, which has fluctuated between 45 and the 50s. Hypertension: - The patient monitors her blood pressur e at home every morning before taking he r medication, and the numbers are generally very good. - She notes her blood pressure was previ ously elevated due to sinus drainage. Bp was checked again and it came back at 139/89 Hyperlipidemia: - Labs from March showed a high LDL of 90. Productive Cough: - The patient reports a productive cough with milky white phlegm. - The symptom has been present but has b een improving over the last week. Medical History: - Hypercalcemia, with a referral to endo crinology years prior that was not completed. - Chronic kidney disease with GFR fluctu ating between 45 and the 50s. - Hypertension. - Hyperlipidemia. 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 Social History: - Reports being under significant tensio n and pressure for a month and a half due to her brother's illness. - Reports a diet high in calcium, includ ing a lot of dairy. Diagnostic Results: - Vitals: Left arm blood pressure was in itially 148/90 mmHg and on recheck was 138/88 mmHg. - Labs (March): Hemoglobin within edmundo l limits, normal electrolytes, GFR of 53, high LDL of 90, and elevated calcium level. Problem List - Hypercalcemia - Chronic kidney disease - Hypertension - Hyperlipidemia - Productive cough - Preventative care: Follow-up visit Plan - The patient will undergo blood work to day to check her parathyroid hormone level and to recheck her calcium levels; no fasting is required. - The patient was advised she can stop h er daily blood pressure monitoring as her readings are good at home and we will continue to monitor it when she comes here - A follow-up appointment is scheduled f or six months. - If there are any concerning findings o n the new lab report, a telephone visit will be booked to discuss the results. Review of Systems - General: No fever no chills - Neurological: No headaches no dizziness - Ear nose throat: No sore throat no hearing difficulty no ear pain - Cardiovascular: No syncope, no chest pain, no palpitations - Gastrointestinal: No nausea vomiting or diarrhea Physical Exam - General: No acute distress - HEENT: No acute findings - Neck: Supple - Respiratory system: Able to talk in f ull sentences, no audible wheeze - Cardiovascular: S1-S2 regular in rate and rhythm - Gastrointestinal: No pain - Extremities: No new findings - BAR CAPTAIN: Alert awake oriented x3 motor in tact - Skin: Normal turgor PFSH Medical History Nephropathy Allergies Age related osteoporosis Hypertension, essential Surgical History History of cataract surgery History of hysterectomy Family History Father Parkinson disease Unknown family medical history Mother Dementia Sister Myeloma Social History Household Members Other:: Alone- single, no child Housing: Apartment Alcohol intake: current Alcohol intake frequency: holidays/special occasions only Patient Tobacco Use Status: Never used Tobacco e-Cigarette/Vaping Use: Never Used service: No Current occupational status: retired Cognitive needs: Yes Hearing needs: Yes Vision needs: Yes Questionnaire Thrive Questionnaire Date Thrive assessed: 10/11/24 ADRIAN-7 AMB Questionnaire ADRIAN-7 Date ADRIAN - 7 assessed: 10/11/24 Source: Developed by Drs. Phan Munroe, Avis Hitchcock, Alexi Mina and colleagues, with an educational serjio from [employer]. Physical exam (Primary Care) Vital Signs: Last Vital Signs Pulse 80 06/19/25 11:44 BP 139/89 06/19/25 11:54 Pulse Ox 99 06/19/25 11:44 Oxygen Delivery Method Room Air 06/19/25 11:44 BMI result Body Mass Index 23.0 Tobacco/Smoking Status: Tobacco use Status Tobacco use date assessed 06/19/25 06/19/25 11:46 Patient Tobacco Use Status Never used Tobacco 06/19/25 11:46 e-Cigarette/Vaping Use Never Used 06/19/25 11:46 Thrive Assessment: Date of Thrive Assessment Date Thrive assessed 10/11/24 06/19/25 11:46 Coding Level of Care Code Est Pt Level 4 (12371) Diagnoses Serum calcium elevated E83.52 Hypertension, essential I10 Hearing difficulty of right ear H91.91 Anxiety, generalized F41.1 Age-related osteoporosis without current pathological fracture M81.0 Presence of current pathological fracture: without current pathological fracture Nephropathy N28.9 Assessment & Plan Assessment & Plan (1) Serum calcium elevated: Code(s): E83.52 - Hypercalcemia Category: Medical (2) Hypertension, essential: Code(s): I10 - Essential (primary) hypertension Category: Medical (3) Hearing difficulty of right ear: Code(s): H91.91 - Unspecified hearing loss, right ear Category: Medical (4) Anxiety, generalized: Code(s): F41.1 - Generalized anxiety disorder Category: Medical (5) Age related osteoporosis: Code(s): M81.0 - Age-related osteoporosis without current pathological fracture Category: Medical Qualifiers: Presence of current pathological fracture: without current pathological fracture Qualified Code(s): M81.0 - Age-related osteoporosis without current pathological fracture (6) Nephropathy: Code(s): N28.9 - Disorder of kidney and ureter, unspecified Category: Medical Plan . Hypercalcemia: - The patient has an elevated calcium level noted on labs from March. - Potential causes discussed include hyperparathyroidism or compromised kidney function. - The patient was referred to an district fire chief years ago for this issue but did not follow up. - The patient reports a high intake of dairy products. - has age related Osteoprosis Chronic Kidney Disease: - The patient has compromised kidney function, and her GFR was 53 on recent labs, which has fluctuated between 45 and the 50s. Hypertension: - The patient monitors her blood pressure at home every morning before taking her medication, and the numbers are generally very good. - She notes her blood pressure was previously elevated due to sinus drainage. Bp was checked again and it came back at 139/89 - Patient also have gen anxiety Hyperlipidemia: - Labs from March showed a high LDL of 90. Productive Cough: - The patient reports a productive cough with milky white phlegm. - The symptom has been present but has been improving over the last week. Medical History: - Hypercalcemia, with a referral to endocrinology years prior that was not completed. - Chronic kidney disease with GFR fluctuating between 45 and the 50s. - Hypertension. - Hyperlipidemia. 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 Social History: - Reports being under significant tension and pressure for a month and a half due to her brother's illness. - Reports a diet high in calcium, including a lot of dairy. Diagnostic Results: - Vitals: Left arm blood pressure was initially 148/90 mmHg and on recheck was 138/88 mmHg. - Labs (March): Hemoglobin within normal limits, normal electrolytes, GFR of 53, high LDL of 90, and elevated calcium level. Problem List - Hypercalcemia - Chronic kidney disease - Hypertension - Hyperlipidemia - Productive cough - Preventative care: Follow-up visit Plan - The patient will undergo blood work today to check her parathyroid hormone level and to recheck her calcium levels; no fasting is required. - The patient was advised she can stop her daily blood pressure monitoring as her readings are good at home and we will continue to monitor it when she comes here - A follow-up appointment is scheduled for six months. - If there are any concerning findings on the new lab report, a telephone visit will be booked to discuss the results. Orders: Orders Parathyroid Hormone Related Pr Today E83.52 - Hypercalcemia
[2025-06-19 11:54] VITALS: BP 139/89
== END 2025-06-19 12:03 | disposition home or self-care (01) ==
LOC: HO.HMCC 11:31
PROVIDERS: PCP Internal Medicine; Visit Provider Internal Medicine
DX: E83.52 Hypercalcemia (principal); I10 Essential (primary) hypertension; H91.91 Unspecified hearing loss, right ear; F41.1 Generalized anxiety disorder; M81.0 Age-related osteoporosis without current pathological fracture; N28.9 Disorder of kidney and ureter, unspecified

== ENCOUNTER 2025-06-19 11:30 | Outpatient (REF) | payer OTHER, SELFPAY ==
--- OUTSIDE RECORDS SUMMARY | 2025-06-20 02:56 | XMS_ITS | Patient Health Record ---
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 Primary [facility] Provider Levon Yi Unavailable [phone] Allergies Allergen (clinical drug ingredient) Drug/Non Drug [...] W/U Status Risk Notes Problem Tinea unguium (941959612) Tinea unguium (B35.1) Active confirmed Problem Ingrowing nail (820639106) Ingrowing nail (L60.0) Active confirmed Plan Of Treatment Pending Test Test Name Order Date [id number] Plate 04/15/2021 [id number] Plate 12/09/2021 Insurance Providers Payer Name Payer Address Payer Phone Subscriber Number Group Number Insured Name Patient Relationship to Insured Coverage Start Date Coverage End Date [place] ([facility]) [address] [place] [address] [phone] [id number] [facility] Rehana Leavitt Self - patient is the insured Medical (General) History Medical History History ICD Code Broken bones Cataracts Hiatal hernia High blood pressure Macular degeneration Osteoporosis chronic sinusitis Chicken pox Measles Mumps Surgical History Surgery Date(Month/Year) tonsillectomy 1950 partial hysterectomy 10/20/78 hysterectomy, total 10/28/81 elbow sx 05/08/13
[2025-06-26 16:53] LABS: Parathyroid Hormone Related Pr 16 pg/mL (11-20)
== END 2025-06-19 11:31 | disposition home or self-care (01) ==
LOC: HO.HMGCLDS 11:30
PROVIDERS: PCP Internal Medicine; Visit Provider Internal Medicine
DX: E83.52 Hypercalcemia (principal); I12.9 Hypertensive chronic kidney disease with stage 1 through stage 4 chronic kidney disease, or unspecified chronic kidney disease; N18.9 Chronic kidney disease, unspecified; E78.5 Hyperlipidemia, unspecified; R05.9 Cough, unspecified; H91.91 Unspecified hearing loss, right ear; F41.1 Generalized anxiety disorder; M81.0 Age-related osteoporosis without current pathological fracture
CPT/HCPCS: 36415; 83519